=== PATIENT | male | born 1970 | race Caucasian/White ===

== ENCOUNTER 2020-08-10 01:08 | Emergency (ER) | payer OTHER ==
[~2020-08-10] VITALS: Ht 152.4 cm; Wt 68.1 kg
[2020-08-10] MEDS ORDERED: ALBU8.5H INH (01:26)
[2020-08-10] MEDS ORDERED: CARV12.5 PO (01:26)
[2020-08-10] MEDS ORDERED: PLAV1TAB2 PO (01:26)
[2020-08-10] MEDS ORDERED: ATOR40TA75 PO (01:26)
[2020-08-10] MEDS ORDERED: ADV250INH INH (01:26)
[2020-08-10] MEDS ORDERED: DEPA250T32 PO (01:26)
[2020-08-10] MEDS ORDERED: LISI10TA22 PO (01:26)
[2020-08-10] MEDS ORDERED: ASPI81CH48 PO (01:26)
[2020-08-10] MEDS ORDERED: FLUO20CA22 PO (01:26)
[2020-08-10] MEDS ORDERED: METF-877 PO (01:38)
[2020-08-10] MEDS ORDERED: INSUH10VL SC (01:38)
[2020-08-10] MEDS ORDERED: LANTINJ4 SC (01:38)
[2020-08-10 01:50] LABS: BASO # 0.1 10^3/uL (0.0-0.2); BASO % 0.7 % (0.0-1.0); EOS # 0.5 10^3/uL (0.0-0.5); EOS % 5.3 % (0.0-3.0); HEMATOCRIT 42.8 % (42.0-52.0); HEMOGLOBIN 14.2 g/dl (13.5-17.5); LYMPH % 31.3 % (24.0-44.0); MEAN CORPUSCULAR HEMOGLOBIN 29.6 pg (27.0-33.0); MEAN CORPUSCULAR HGB CONC 33.2 g/dl (32.0-36.5); MEAN CORPUSCULAR VOLUME 89.4 fl (80.0-96.0); MONO # 0.6 10^3/uL (0.0-0.8); MONO % 6.3 % (2.0-8.0); NEUTROPHILS # 5.3 10^3/uL (1.5-8.5); NEUTROPHILS % 56.1 % (36.0-66.0); PLATELET COUNT, AUTOMATED 305 10^3/uL (150-450); RED BLOOD COUNT 4.79 10^6/uL (4.30-6.10); WHITE BLOOD COUNT 9.5 10^3/uL (4.0-10.0)
[2020-08-10 02:20] LABS: ACETAMINOPHEN LEVEL < 2.0 UG/ML (10.0-30.0); ALBUMIN 3.8 GM/DL (3.2-5.2); ALT/SGPT 25 U/L (12-78); BILIRUBIN,DIRECT < 0.1 MG/DL (0.0-0.2); BILIRUBIN,TOTAL 0.2 MG/DL (0.2-1.0); BLOOD UREA NITROGEN 17 MG/DL (7-18); CALCIUM LEVEL 9.1 MG/DL (8.5-10.1); CARBON DIOXIDE LEVEL 30 MEQ/L (21-32); CHLORIDE LEVEL 101 MEQ/L (98-107); CK-MB VALUE MASS 7.1 NG/ML (<3.6); CPK CREATINE PHOSPHOKINASE 841 U/L (39-308); CREATININE FOR GFR 1.11 MG/DL (0.70-1.30); ETHYL ALCOHOL (ETHANOL) < 0.003 % (0.000-0.010); GLOMERULAR FILTRATION RATE > 60.0 (>56); GLUCOSE, FASTING 264 MG/DL (70-100); MB/CK RELATIVE INDEX 0.84 (< OR =4); POTASSIUM SERUM 3.8 MEQ/L (3.5-5.1); SALICYLATE LEVEL 3.5 MG/DL (5.0-30.0); SODIUM LEVEL 138 MEQ/L (136-145); THYROID STIMULATING HORMONE 0.993 uIU/ML (0.358-3.740); TOTAL PROTEIN 7.4 GM/DL (6.4-8.2); TROPONIN I 0.32 NG/ML (< 0.10)
[2020-08-10] MEDS ORDERED: ASPIRIN 81 MG CHEW TABLET PO ONE (02:30)
[2020-08-10] MEDS: NITROGLYCERIN 0.4 MG SUBL TABLET SL PRN ×2 (02:58→03:21)
[2020-08-10 03:12] LABS: AMPHETAMINES LEVEL URINE NEGATIVE (NEGATIVE); BARBITURATES URINE NEGATIVE (NEGATIVE); BENZODIAZEPINES URINE NEGATIVE (NEGATIVE); CANNABINOIDS URINE POSITIVE (NEGATIVE); COCAINE METABOLITE URINE NEGATIVE (NEGATIVE); METHADONE URINE NEGATIVE (NEGATIVE); OPIATES URINE NEGATIVE (NEGATIVE); PHENCYCLIDINE URINE NEGATIVE (NEGATIVE)
[2020-08-10 03:21] VITALS: BP 101/57
--- NOTE | 2020-08-10 03:25 | REPVR ---
PROCEDURE INFORMATION: Exam: XR Chest, 1 View Exam date and time: 08/10/2020 2:55 AM Age: 49 years old Clinical indication: Chest pain; Type not specified TECHNIQUE: Imaging protocol: XR of the chest Views: 1 view. COMPARISON: No relevant prior studies available. FINDINGS: Lungs: Unremarkable. No consolidation. Pleural spaces: Unremarkable. No pleural effusion. No pneumothorax. Heart/Mediastinum: Unremarkable. No cardiomegaly. Bones/joints: Unremarkable. IMPRESSION: No acute findings. Electronically signed by: Gustavo Drew On 08/10/2020 03:25:27 AM
[2020-08-10 05:08] LABS: CK-MB VALUE MASS 5.6 NG/ML (<3.6); MB/CK RELATIVE INDEX 0.89 (< OR =4); TROPONIN I 0.3 NG/ML (< 0.10)
[2020-08-10] MEDS ORDERED: ISOVUE-370 76% 100ML VIAL As Ordered ONE (05:30)
--- NOTE | 2020-08-10 06:17 | ECGEPIP ---
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
--- NOTE | 2020-08-10 06:20 | ECGEPIP ---
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
[2020-08-10 06:25] LABS: RSV AMPLIFICATION NEGATIVE (NEGATIVE)
--- NOTE | 2020-08-10 07:02 | REPVR ---
PROCEDURE INFORMATION: Exam: CT Angiography Chest With Contrast Exam date and time: 08/10/2020 6:42 AM Age: 49 years old Clinical indication: Chest pain; Additional info: Chest pain, elevated troponin TECHNIQUE: Imaging protocol: Computed tomographic angiography of the chest with contrast. 3D rendering (Not supervised by radiologist): MIP and/or 3D reconstructed images were created by the technologist. Radiation optimization: All CT scans at this facility use at least one of these dose optimization techniques: automated exposure control; mA and/or kV adjustment per patient size (includes targeted exams where dose is matched to clinical indication); or iterative reconstruction. Contrast material: ISO 370; Contrast volume: 75 ml; Contrast route: INTRAVENOUS (IV); COMPARISON: CR PORTABLE CHEST X-RAY 08/10/2020 2:52 AM FINDINGS: Pulmonary arteries: No pulmonary embolus in the opacified pulmonary arteries. Aorta: Normal caliber of the thoracic aorta. Lungs: Interstitial prominence and asymmetric left-sided airspace disease. Pleural spaces: no pleural effusion. Heart: Borderline cardiomegaly and coronary artery calcification. Lymph nodes: Subcentimeter lymph nodes. Stomach and bowel: Questionable wall thickening in the nondistended stomach. Bones/joints: Old rib fractures. Schmorl's nodes and mild degenerative change . IMPRESSION: 1. No pulmonary embolus in the opacified pulmonary arteries. 2. Additional findings as described above. Electronically signed by: Torsten Luo On 08/10/2020 07:02:18 AM
[2020-08-10] MEDS ORDERED: HEPARIN DRIP 25,000 UNITS in IV 1 EA IV SCH (07:44)
[2020-08-10] MEDS ORDERED: CLOPIDOGREL 300 MG TAB (PLAVIX) PO ONE (07:45)
[2020-08-10] MEDS ORDERED: HEPARIN SOD (PORCINE) 5000UNITS/ML 1ML VIAL/SYRINGE IV ONE (07:45)
[2020-08-10 08:38] LABS: INR 0.92; PROTHROMBIN TIME 12.5 SECONDS (12.5-14.3)
[2020-08-10 08:39] LABS: PARTIAL THROMBOPLASTIN TIME 28.9 SECONDS (24.2-38.5)
[2020-08-10 08:55] LABS: CK-MB VALUE MASS 4.4 NG/ML (<3.6); MB/CK RELATIVE INDEX 0.91 (< OR =4); TROPONIN I 0.27 NG/ML (< 0.10)
[2020-08-10 09:12] VITALS: BP 112/76
--- NOTE | 2020-08-11 07:12 | ECGEPIP ---
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
== END 2020-08-10 09:15 | disposition short-term general hospital (02) ==
LOC: M ED 01:08
DX: R45.851 Suicidal ideations (principal); R45.850 Homicidal ideations; I21.4 Non-ST elevation (NSTEMI) myocardial infarction; I25.10 Atherosclerotic heart disease of native coronary artery without angina pectoris; Z91.5 Personal history of self-harm; F17.200 Nicotine dependence, unspecified, uncomplicated; J98.4 Other disorders of lung
CPT/HCPCS: 71045; 71275; 80048; 80076; 80143; 80307; 82077; 82550; 82553; 84443; 85025; 85610; 85730; 87631; 93005; 93041; 99285; J1644; Q9967

== ENCOUNTER 2020-10-07 20:20 | Emergency (ER) | payer OTHER ==
[~2020-10-07] VITALS: Ht 152.4 cm; Wt 89.5 kg
[~2020-10-07 20:20] MED LIST: ADV250INH INH; ALBU8.5H INH; ASPI81CH48 PO; ATOR40TA75 PO; CARV12.5 PO; DEPA250T32 PO; FLUO20CA22 PO; INSUH10VL SC; LANTINJ4 SC; LISI10TA22 PO; METF-877 PO; PLAV1TAB2 PO
[2020-10-07] MEDS ORDERED: CLOPIDOGREL 75 MG TAB PO ONE (20:55)
[2020-10-07] MEDS ORDERED: ATORVASTATIN 20 MG TAB PO ONE (20:55)
[2020-10-07] MEDS ORDERED: metFORMIN (GLUCOPHAGE) 500MG TAB PO ONE (20:55)
[2020-10-07] MEDS ORDERED: ASPIRIN 81 MG CHEW TABLET PO ONE (20:55)
[2020-10-07] MEDS ORDERED: ATOR80TA59 PO ×2 (21:02→21:38)
[2020-10-07] MEDS ORDERED: METF500T13 PO ×2 (21:02→21:38)
[2020-10-07] MEDS ORDERED: ALBU8.5H INH ×2 (21:02→21:38)
[2020-10-07] MEDS ORDERED: ASPI81CH33 PO ×2 (21:02→21:38)
[2020-10-07] MEDS ORDERED: PLAV1TAB2 PO ×2 (21:02→21:38)
[2020-10-07] MEDS ORDERED: CORE12.5 PO ×2 (21:02→21:38)
[2020-10-07] MEDS ORDERED: LISI10TA22 PO ×2 (21:02→21:38)
[2020-10-07] MEDS ORDERED: PROT1TAB2 PO ×2 (21:02→21:38)
[2020-10-07 21:15] VITALS: BP 143/88
--- NOTE | 2020-10-08 10:15 | ECGEPIP ---
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
== END 2020-10-07 21:43 | disposition home or self-care (01) ==
LOC: M ED 20:20
DX: E11.65 Type 2 diabetes mellitus with hyperglycemia (principal); F17.200 Nicotine dependence, unspecified, uncomplicated; Z76.0 Encounter for issue of repeat prescription; Z88.0 Allergy status to penicillin

== ENCOUNTER 2020-10-14 08:44 | Emergency (ER) | payer OTHER ==
[~2020-10-14] VITALS: Ht 152.4 cm; Wt 79.5 kg
[~2020-10-14 08:44] MED LIST changes: +ASPI81CH33 PO; +ATOR80TA59 PO; +CORE12.5 PO; +METF500T13 PO; +PROT1TAB2 PO
--- NOTE | 2020-10-14 10:28 | REP ---
INDICATION: mass left leg--suspect lipoma. COMPARISON: None FINDINGS: In the region of the right lateral popliteal fossa and within the deep subcutanea there is an oval-shaped hypoechoic nodule which measures approximately 2.9 by 3.4 by 0.6 cm. IMPRESSION: There is a solid mixed echo nodule in the right leg as described above. The etiology of this is uncertain. Consider further evaluation with pre and post gadolinium enhanced MRI. <Electronically signed by Abhi Gordon > 10/14/20 1024
[2020-10-14 10:57] VITALS: BP 144/88
== END 2020-10-14 11:15 | disposition home or self-care (01) ==
LOC: M ED 08:44
DX: R22.41 Localized swelling, mass and lump, right lower limb (principal); Z79.51 Long term (current) use of inhaled steroids; Z79.84 Long term (current) use of oral hypoglycemic drugs; Z79.899 Other long term (current) drug therapy; Z88.0 Allergy status to penicillin; Z88.8 Allergy status to other drugs, medicaments and biological substances; Z91.030 Bee allergy status

== ENCOUNTER → 2020-10-15 | Outpatient (REF) | payer OTHER, MEDICAID | LOC: M SFHCCLAY 09:58 | PROVIDERS: ATTEND Family Medicine | DX: I11.0 Hypertensive heart disease with heart failure (principal); E11.9 Type 2 diabetes mellitus without complications; E78.5 Hyperlipidemia, unspecified; I25.10 Atherosclerotic heart disease of native coronary artery without angina pectoris; K21.9 Gastro-esophageal reflux disease without esophagitis ==

== ENCOUNTER 2021-02-03 15:04 | Emergency (ER) | payer MEDICAID, OTHER ==
[~2021-02-03] VITALS: Ht 152.4 cm; Wt 71.2 kg
[2021-02-03] MEDS ORDERED: FLUO40CA (15:35)
[2021-02-03] MEDS ORDERED: TRAZ-189 (15:35)
[2021-02-03] MEDS ORDERED: SIMV40TA20 (15:35)
[2021-02-03] MEDS ORDERED: INCR1INH (15:35)
[2021-02-03] MEDS ORDERED: DIVA500T94 (15:35)
[2021-02-03] MEDS ORDERED: ADME100I (15:35)
[2021-02-03] MEDS ORDERED: HumuLIN R (REGULAR) INSULIN (NovoLIN R) **100U/ML** PER UNIT IV ONE (15:50)
[2021-02-03 15:51] LABS: BASO # 0.1 10^3/uL (0.0-0.2); BASO % 0.9 % (0.0-1.0); EOS # 0.2 10^3/uL (0.0-0.5); EOS % 2.1 % (0.0-3.0); HEMATOCRIT 47.2 % (42.0-52.0); HEMOGLOBIN 16.3 g/dl (13.5-17.5); LYMPH # 2.4 10^3/uL (1.5-5.0); LYMPH % 28.1 % (24.0-44.0); MEAN CORPUSCULAR HEMOGLOBIN 31.2 pg (27.0-33.0); MEAN CORPUSCULAR HGB CONC 34.5 g/dl (32.0-36.5); MEAN CORPUSCULAR VOLUME 90.4 fl (80.0-96.0); MONO # 0.6 10^3/uL (0.0-0.8); NEUTROPHILS # 5.3 10^3/uL (1.5-8.5); NEUTROPHILS % 61.5 % (36.0-66.0); PLATELET COUNT, AUTOMATED 238 10^3/uL (150-450); RED BLOOD COUNT 5.22 10^6/uL (4.30-6.10); WHITE BLOOD COUNT 8.5 10^3/uL (4.0-10.0)
[2021-02-03 16:30] VITALS: BP 138/101
[2021-02-03 16:34] LABS: ALBUMIN 3.8 GM/DL (3.2-5.2); ALT/SGPT 20 U/L (12-78); BILIRUBIN,DIRECT 0.2 MG/DL (0.0-0.2); BILIRUBIN,TOTAL 0.8 MG/DL (0.2-1.0); BLOOD UREA NITROGEN 18 MG/DL (7-18); CALCIUM LEVEL 9.7 MG/DL (8.5-10.1); CARBON DIOXIDE LEVEL 28 MEQ/L (21-32); CHLORIDE LEVEL 101 MEQ/L (98-107); CREATININE FOR GFR 1.18 MG/DL (0.70-1.30); GLOMERULAR FILTRATION RATE > 60.0 (>56); GLUCOSE, FASTING 475 MG/DL (70-100); LIPASE 78 U/L (73-393); NT-PRO BNP 2840 PG/ML (<125); POTASSIUM SERUM 5.2 MEQ/L (3.5-5.1); SODIUM LEVEL 135 MEQ/L (136-145); TOTAL PROTEIN 7.3 GM/DL (6.4-8.2)
--- NOTE | 2021-02-03 16:50 | REP ---
INDICATION: CHEST PAIN. COMPARISON: 08/10/2020 also portable TECHNIQUE: Portable FINDINGS: The technique utilized in obtaining the radiograph has magnified the cardiac silhouette and accentuated the interstitial markings. The cardiomediastinal silhouette is unchanged. There is a curvilinear density in the left mid lung zone probably unchanged from the prior exam but better imaged today. Lung knowles are otherwise clear and stable. The pleural angles are sharp. The osseous structures stable and intact. IMPRESSION: There is no acute cardiopulmonary disease. <Electronically signed by Abhi Gordon > 02/03/21 [id number]
--- NOTE | 2021-02-04 06:35 | ECGEPIP ---
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
== END 2021-02-03 16:56 | disposition left against medical advice (07) ==
LOC: EDBD 15:04 → M ED 15:04
DX: R07.9 Chest pain, unspecified (principal); I11.9 Hypertensive heart disease without heart failure; I50.9 Heart failure, unspecified; J44.9 Chronic obstructive pulmonary disease, unspecified; E78.5 Hyperlipidemia, unspecified; F17.200 Nicotine dependence, unspecified, uncomplicated; Z88.0 Allergy status to penicillin; Z88.6 Allergy status to analgesic agent; Z91.030 Bee allergy status; Z95.5 Presence of coronary angioplasty implant and graft

== ENCOUNTER → 2021-08-09 | Outpatient (CLI) | payer OTHER ==
[~2021-08-09] MED LIST changes: +ADME100I; +DIVA500T94; +FLUO40CA; +INCR1INH; +SIMV40TA20; +TRAZ-189
[2021-08-09 15:19] LABS: HEMATOCRIT 46.3 % (42.0-52.0); HEMOGLOBIN 15.4 g/dl (13.5-17.5); MEAN CORPUSCULAR HEMOGLOBIN 30.2 pg (27.0-33.0); MEAN CORPUSCULAR HGB CONC 33.3 g/dl (32.0-36.5); MEAN CORPUSCULAR VOLUME 90.8 fl (80.0-96.0); PLATELET COUNT, AUTOMATED 268 10^3/uL (150-450); WHITE BLOOD COUNT 12.4 10^3/uL (4.0-10.0)
[2021-08-09 15:20] LABS: ALBUMIN 3.3 GM/DL (3.2-5.2); ALT/SGPT 14 U/L (12-78); BILIRUBIN,DIRECT < 0.1 MG/DL (0.0-0.2); BILIRUBIN,TOTAL 0.3 MG/DL (0.2-1.0); VALPROIC ACID (DEPAKOTE) 68.9 UG/ML (50.0-100.0)
== END ==
LOC: M PLALAB 12:49
PROVIDERS: ATTEND Psychiatry & Neurology Psychiatry
DX: F32.9 Major depressive disorder, single episode, unspecified (principal)

== ENCOUNTER 2022-04-15 14:07 | Emergency (ER) | payer MEDICAID, OTHER ==
[~2022-04-15 14:07] MED LIST changes: -ADME100I; +ADME100I SQ; -DIVA500T94; +DIVA500T94 PO; -INCR1INH; +INCR1INH INH; -TRAZ-189; +TRAZ-189 PO
[2022-04-15 14:46] LABS: BASO # 0.1 10^3/uL (0.0-0.2); BASO % 0.8 % (0.0-1.0); EOS # 0.2 10^3/uL (0.0-0.5); EOS % 1.9 % (0.0-3.0); HEMATOCRIT 43.5 % (42.0-52.0); HEMOGLOBIN 15.5 g/dl (13.5-17.5); LYMPH # 2.7 10^3/uL (1.5-5.0); LYMPH % 28.6 % (24.0-44.0); MEAN CORPUSCULAR HEMOGLOBIN 30.5 pg (27.0-33.0); MEAN CORPUSCULAR HGB CONC 35.6 g/dl (32.0-36.5); MEAN CORPUSCULAR VOLUME 85.6 fl (80.0-96.0); MONO # 0.5 10^3/uL (0.0-0.8); MONO % 5.1 % (2.0-8.0); NEUTROPHILS # 5.9 10^3/uL (1.5-8.5); PLATELET COUNT, AUTOMATED 277 10^3/uL (150-450); RED BLOOD COUNT 5.08 10^6/uL (4.30-6.10); WHITE BLOOD COUNT 9.4 10^3/uL (4.0-10.0)
[2022-04-15 15:09] LABS: INR 0.9; PARTIAL THROMBOPLASTIN TIME 26.8 SECONDS (24.8-34.2); PROTHROMBIN TIME 12.3 SECONDS (12.5-14.5)
[2022-04-15 15:25] LABS: MB/CK RELATIVE INDEX 1.69 (< OR =4)
[2022-04-15 15:39] LABS: ALBUMIN 3.5 GM/DL (3.2-5.2); ALT/SGPT 24 U/L (12-78); BILIRUBIN,DIRECT 0.1 MG/DL (0.0-0.2); BILIRUBIN,TOTAL 0.5 MG/DL (0.2-1.0); BLOOD UREA NITROGEN 12 MG/DL (7-18); CALCIUM LEVEL 9.3 MG/DL (8.5-10.1); CARBON DIOXIDE LEVEL 25 MEQ/L (21-32); CHLORIDE LEVEL 98 MEQ/L (98-107); CREATININE FOR GFR 1.08 MG/DL (0.70-1.30); FREE T4 1.05 NG/DL (0.76-1.46); GLOMERULAR FILTRATION RATE > 60.0 (>56); GLUCOSE, FASTING 543 MG/DL (70-100); LIPASE 148 U/L (73-393); POTASSIUM SERUM 4.3 MEQ/L (3.5-5.1); SODIUM LEVEL 132 MEQ/L (136-145); THYROID STIMULATING HORMONE 0.997 uIU/ML (0.358-3.740); TOTAL PROTEIN 7.5 GM/DL (6.4-8.2)
[2022-04-15 16:31] LABS: MB/CK RELATIVE INDEX 1.73 (< OR =4)
[2022-04-15] MEDS ORDERED: NS 1,000 ML IV ONE ×2 (16:35→17:00)
[2022-04-15 16:45] VITALS: BP 164/103
[2022-04-15] MEDS ORDERED: HumuLIN R (REGULAR) INSULIN (NovoLIN R) **100U/ML** PER UNIT IV ONE (17:00)
[2022-04-15] MEDS ORDERED: ISOVUE-370 76% 100ML VIAL As Ordered ONE (17:03)
[2022-04-15 17:23] LABS: HEMOGLOBIN A1c 11.4 %
== END 2022-04-15 17:14 | disposition left against medical advice (07) ==
LOC: M ED 14:07 → EDBD 14:07 → M ED 17:14
DX: R07.9 Chest pain, unspecified (principal); E11.9 Type 2 diabetes mellitus without complications; I10 Essential (primary) hypertension; E78.5 Hyperlipidemia, unspecified; J44.9 Chronic obstructive pulmonary disease, unspecified; F31.9 Bipolar disorder, unspecified; F17.200 Nicotine dependence, unspecified, uncomplicated; Z86.79 Personal history of other diseases of the circulatory system; Z95.5 Presence of coronary angioplasty implant and graft; Z88.0 Allergy status to penicillin; Z88.6 Allergy status to analgesic agent; Z91.030 Bee allergy status; Z79.51 Long term (current) use of inhaled steroids; Z79.82 Long term (current) use of aspirin; Z79.4 Long term (current) use of insulin; Z79.811 Long term (current) use of aromatase inhibitors; Z79.899 Other long term (current) drug therapy

== ENCOUNTER 2022-04-18 16:30 | Inpatient (IN) | payer OTHER ==
[~2022-04-18] VITALS: Ht 167.6 cm; Wt 81.8 kg
[2022-04-18 17:36] LABS: HEMATOCRIT 46.4 % (42.0-52.0); HEMOGLOBIN 16.5 g/dl (13.5-17.5); MEAN CORPUSCULAR HEMOGLOBIN 30.6 pg (27.0-33.0); MEAN CORPUSCULAR HGB CONC 35.6 g/dl (32.0-36.5); MEAN CORPUSCULAR VOLUME 85.9 fl (80.0-96.0); PLATELET COUNT, AUTOMATED 296 10^3/uL (150-450); WHITE BLOOD COUNT 10.3 10^3/uL (4.0-10.0)
[2022-04-18 17:58] LABS: AMPHETAMINES LEVEL URINE NEGATIVE (NEGATIVE); BARBITURATES URINE NEGATIVE (NEGATIVE); BENZODIAZEPINES URINE NEGATIVE (NEGATIVE); CANNABINOIDS URINE POSITIVE (NEGATIVE); COCAINE METABOLITE URINE NEGATIVE (NEGATIVE); METHADONE URINE NEGATIVE (NEGATIVE); OPIATES URINE NEGATIVE (NEGATIVE); PHENCYCLIDINE URINE NEGATIVE (NEGATIVE)
[2022-04-18 18:21] LABS: ACETAMINOPHEN LEVEL < 2.0 UG/ML (10.0-30.0); ALT/SGPT 27 U/L (12-78); BILIRUBIN,DIRECT 0.1 MG/DL (0.0-0.2); BILIRUBIN,TOTAL 0.6 MG/DL (0.2-1.0); BLOOD UREA NITROGEN 14 MG/DL (7-18); CALCIUM LEVEL 9.8 MG/DL (8.5-10.1); CARBON DIOXIDE LEVEL 26 MEQ/L (21-32); CHLORIDE LEVEL 95 MEQ/L (98-107); CREATININE FOR GFR 1.17 MG/DL (0.70-1.30); ETHYL ALCOHOL (ETHANOL) < 0.003 % (0.000-0.010); GLOMERULAR FILTRATION RATE > 60.0 (>56); GLUCOSE, FASTING 564 MG/DL (70-100); SALICYLATE LEVEL 2.5 MG/DL (5.0-30.0); SODIUM LEVEL 131 MEQ/L (136-145)
[2022-04-18] MEDS ORDERED: NICOTINE 21MG/24HR 1 EA TRANSDERMAL TD ONE (20:35)
[2022-04-18] MEDS: INSULIN LISPRO (NovoLOG) PER UNIT SC SCH (20:56)
[2022-04-18] MEDS: LEVEMIR (INSULIN DETEMIR) 1 UNITS/0.01ML SC SCH (20:57)
[2022-04-19] MEDS: INSULIN LISPRO (NovoLOG) PER UNIT SC SCH ×3 (08:42→17:44)
[2022-04-19] MEDS ORDERED: ISOS1TAB35 PO (08:58)
[2022-04-19] MEDS ORDERED: LISI10TA22 PO (08:58)
[2022-04-19] MEDS ORDERED: COMBAER6 INH (08:58)
[2022-04-19] MEDS ORDERED: CLOP75TA2 PO (08:58)
[2022-04-19] MEDS ORDERED: METF-839 PO (08:58)
[2022-04-19] MEDS ORDERED: BASA100I SC (08:58)
[2022-04-19] MEDS ORDERED: VENTAER INH (08:58)
[2022-04-19] MEDS ORDERED: ADV250INH INH (08:58)
[2022-04-19] MEDS ORDERED: ASPI-226 PO (08:58)
[2022-04-19] MEDS ORDERED: ATOR80TA59 PO (08:58)
[2022-04-19] MEDS ORDERED: NITR4TASL SL (09:01)
[2022-04-19] MEDS ORDERED: ZOLO100T PO (09:01)
[2022-04-19] MEDS ORDERED: PANT-23 PO (09:18)
[2022-04-19] MEDS ORDERED: CARV12.5 PO (09:18)
[2022-04-19] MEDS ORDERED: HOME MED LIST COMPLETE! XX SCH (09:20)
[2022-04-19] MEDS ORDERED: ISOSORBIDE MON. (IMDUR) 30MG XR TAB PO SCH (21:00)
[2022-04-19] MEDS ORDERED: ISOSORBIDE MONONITRATE 10MG TABLET PO SCH (21:00)
[2022-04-19] MEDS: LEVEMIR (INSULIN DETEMIR) 1 UNITS/0.01ML SC SCH (22:21)
[2022-04-19] MEDS: DIVALPROEX 500 MG TAB PO SCH (22:21)
[2022-04-20] MEDS: INSULIN LISPRO (NovoLOG) PER UNIT SC SCH ×5 (00:02→22:01)
[2022-04-20] MEDS ORDERED: NICOTINE 21MG/24HR 1 EA TRANSDERMAL TD ONE (07:25)
[2022-04-20] MEDS ORDERED: ASPIRIN 81 MG CHEW TABLET PO SCH (09:00)
[2022-04-20] MEDS ORDERED: PANTOPRAZOLE 40MG TAB (PROTONIX) PO SCH (09:00)
[2022-04-20] MEDS ORDERED: ATORVASTATIN 20 MG TAB PO SCH (09:00)
[2022-04-20] MEDS ORDERED: CLOPIDOGREL 75 MG TAB PO SCH (09:00)
[2022-04-20] MEDS ORDERED: metFORMIN (GLUCOPHAGE) 1000MG TABLET PO SCH (09:00)
[2022-04-20] MEDS: DIVALPROEX 500 MG TAB PO SCH ×2 (09:15→21:59)
[2022-04-20] MEDS ORDERED: ADVAIR HFA 115/21MCG INHALER INH SCH (13:44)
[2022-04-20] MEDS ORDERED: MOM 30ML SUSPENSION UDC PO PRN (13:45)
[2022-04-20] MEDS ORDERED: MAALOX 30 ML SUSP *UDC PO PRN (13:45)
[2022-04-20] MEDS ORDERED: ACETAMINOPHEN TAB 650MG DOSE (2X325MG) PO PRN (13:45)
[2022-04-20] MEDS ORDERED: traZODone 50 MG TAB PO PRN (13:45)
[2022-04-20] MEDS ORDERED: GLUCAGON INJ 1MG VIAL SC PRN (14:20)
[2022-04-20] MEDS ORDERED: GLUCOSE 4GM CHEW TABLET PO PRN (14:20)
[2022-04-20 15:50] VITALS: BP 103/59
[2022-04-20] MEDS: SERTRALINE 100 MG TAB PO SCH (17:30)
[2022-04-20] MEDS: ASPIRIN 81MG ENTERIC TABLET PO SCH (17:30)
[2022-04-20] MEDS ORDERED: LEVEMIR (INSULIN DETEMIR) 1 UNITS/0.01ML SC SCH (21:00)
[2022-04-20] MEDS ORDERED: SERTRALINE 100 MG TAB PO SCH (21:00)
[2022-04-20] MEDS: CARVedilol 12.5 MG TAB PO SCH (21:00)
[2022-04-20] MEDS: ISOSORBIDE MON. (IMDUR) 30MG XR TAB PO SCH (21:00)
[2022-04-20] MEDS: metFORMIN (GLUCOPHAGE) 500MG TAB PO SCH (21:56)
[2022-04-20] MEDS: ADVAIR HFA 115/21MCG INHALER INH SCH (21:56)
[2022-04-21 06:29] VITALS: BP 130/61
[2022-04-21] MEDS: INSULIN LISPRO (NovoLOG) PER UNIT SC SCH ×5 (06:30→20:24)
[2022-04-21] MEDS: metFORMIN (GLUCOPHAGE) 500MG TAB PO SCH ×2 (08:10→20:22)
[2022-04-21] MEDS: CARVedilol 12.5 MG TAB PO SCH ×2 (08:11→20:23)
[2022-04-21] MEDS: PANTOPRAZOLE 40MG TAB (PROTONIX) PO SCH (08:11)
[2022-04-21] MEDS: ATORVASTATIN 20 MG TAB PO SCH (08:11)
[2022-04-21] MEDS: ASPIRIN 81MG ENTERIC TABLET PO SCH (08:11)
[2022-04-21] MEDS: CLOPIDOGREL 75 MG TAB PO SCH (08:11)
[2022-04-21] MEDS: ADVAIR HFA 115/21MCG INHALER INH SCH ×2 (08:12→20:22)
[2022-04-21] MEDS: DIVALPROEX 500 MG TAB PO SCH ×2 (08:12→20:22)
[2022-04-21] MEDS: SERTRALINE 100 MG TAB PO SCH (09:21)
[2022-04-21] MEDS ORDERED: NITROGLYCERIN 0.4 MG SUBL TABLET SL PRN (14:40)
[2022-04-21] MEDS ORDERED: ALBUTEROL 90 MCG/ACT 8GM HFA INHALER INH PRN (14:40)
[2022-04-21] MEDS ORDERED: COMBIVENT RESPIMAT 100-20MCG INHALER 4GM INH PRN (14:40)
[2022-04-21] MEDS ORDERED: INSULIN LISPRO (NovoLOG) PER UNIT SC SCH (17:30)
[2022-04-21] MEDS: ISOSORBIDE MON. (IMDUR) 30MG XR TAB PO SCH (20:22)
[2022-04-21] MEDS ORDERED: LEVEMIR (INSULIN DETEMIR) 1 UNITS/0.01ML SC SCH ×2 (21:00)
[2022-04-22 06:21] VITALS: BP 112/55
[2022-04-22] MEDS: INSULIN LISPRO (NovoLOG) PER UNIT SC SCH ×2 (07:06)
[2022-04-22 08:49] VITALS: BP 100/52
[2022-04-22] MEDS: ADVAIR HFA 115/21MCG INHALER INH SCH (08:49)
[2022-04-22] MEDS: CARVedilol 12.5 MG TAB PO SCH (08:49)
[2022-04-22] MEDS: ATORVASTATIN 20 MG TAB PO SCH (08:50)
[2022-04-22] MEDS: PANTOPRAZOLE 40MG TAB (PROTONIX) PO SCH (08:50)
[2022-04-22] MEDS: ASPIRIN 81MG ENTERIC TABLET PO SCH (08:50)
[2022-04-22] MEDS: SERTRALINE 100 MG TAB PO SCH (08:50)
[2022-04-22] MEDS: CLOPIDOGREL 75 MG TAB PO SCH (08:51)
[2022-04-22] MEDS: metFORMIN (GLUCOPHAGE) 500MG TAB PO SCH (08:51)
[2022-04-22] MEDS: DIVALPROEX 500 MG TAB PO SCH (08:51)
[2022-04-22] MEDS ORDERED: TRAZ-252 PO (10:53)
[2022-04-22] MEDS ORDERED: ZOLO100T PO ×2 (10:53→12:12)
[2022-04-22] MEDS ORDERED: DEPA1TAB3 PO ×2 (10:53→12:11)
[2022-04-22] MEDS ORDERED: TRAZ1TAB10 PO (12:13)
== END 2022-04-22 11:52 | disposition home or self-care (01) | DRG 753 ==
LOC: M ED 16:30 → M ED INP 04-20 13:44 → M PSY 04-20 15:59
PROVIDERS: ADMIT Psychiatry & Neurology Psychiatry; ATTEND Psychiatry & Neurology Psychiatry
DX: F31.81 Bipolar II disorder (principal); E11.9 Type 2 diabetes mellitus without complications; R45.851 Suicidal ideations; Z91.14 Patient's other noncompliance with medication regimen; F12.90 Cannabis use, unspecified, uncomplicated; Z79.4 Long term (current) use of insulin; Z88.0 Allergy status to penicillin; Z88.8 Allergy status to other drugs, medicaments and biological substances; Z79.82 Long term (current) use of aspirin; Z79.899 Other long term (current) drug therapy; Z91.030 Bee allergy status; J44.9 Chronic obstructive pulmonary disease, unspecified; E78.5 Hyperlipidemia, unspecified; F43.10 Post-traumatic stress disorder, unspecified; K21.9 Gastro-esophageal reflux disease without esophagitis; Z95.2 Presence of prosthetic heart valve; Z87.891 Personal history of nicotine dependence

== ENCOUNTER 2022-04-26 22:10 | Emergency (ER) | payer OTHER ==
[~2022-04-26] VITALS: Ht 165.1 cm; Wt 78.2 kg
[2022-04-26 22:10] VITALS: BP 156/95
[~2022-04-26 22:10] MED LIST changes: +ASPI-226 PO; +BASA100I SC; +CLOP75TA2 PO; +CLOP75TA99 PO; +COMBAER6 INH; +DEPA1TAB3 PO; +ISOS1TAB35 PO; +METF-839 PO; +NITR4TASL SL; +PANT-23 PO; -PLAV1TAB2 PO; +TRAZ-252 PO; +TRAZ1TAB10 PO; +VENTAER INH; +ZOLO100T PO
== END 2022-04-26 22:50 | disposition left against medical advice (07) ==
LOC: M ED 22:10
DX: Z53.21 Procedure and treatment not carried out due to patient leaving prior to being seen by health care provider (principal)

== ENCOUNTER 2022-04-28 18:50 | Emergency (ER) | payer OTHER ==
[~2022-04-28] VITALS: Ht 167.6 cm; Wt 77.4 kg
[2022-04-28 23:16] VITALS: BP 141/90
== END 2022-04-29 00:19 | disposition home or self-care (01) ==
LOC: M ED 18:50
DX: S69.91XA Unspecified injury of right wrist, hand and finger(s), initial encounter (principal); W10.1XXA Fall (on)(from) sidewalk curb, initial encounter; J44.9 Chronic obstructive pulmonary disease, unspecified; J45.909 Unspecified asthma, uncomplicated; F31.9 Bipolar disorder, unspecified; E11.9 Type 2 diabetes mellitus without complications; E78.5 Hyperlipidemia, unspecified; I10 Essential (primary) hypertension; F17.200 Nicotine dependence, unspecified, uncomplicated; Y92.9 Unspecified place or not applicable; Y93.9 Activity, unspecified; Y99.9 Unspecified external cause status; Z86.73 Personal history of transient ischemic attack (TIA), and cerebral infarction without residual deficits; Z91.030 Bee allergy status; Z88.5 Allergy status to narcotic agent; Z79.51 Long term (current) use of inhaled steroids; Z79.4 Long term (current) use of insulin; Z79.811 Long term (current) use of aromatase inhibitors; Z79.899 Other long term (current) drug therapy

== ENCOUNTER 2022-05-08 14:31 | Emergency (ER) | payer MEDICAID, OTHER ==
[~2022-05-08] VITALS: Ht 170.2 cm; Wt 78.6 kg
[2022-05-08] MEDS ORDERED: IBUP-1022 PO (15:45)
[2022-05-08 15:53] VITALS: BP 141/92
== END 2022-05-08 15:58 | disposition home or self-care (01) ==
LOC: M ED 14:31
DX: S63.501A Unspecified sprain of right wrist, initial encounter (principal); W10.8XXA Fall (on) (from) other stairs and steps, initial encounter; J44.9 Chronic obstructive pulmonary disease, unspecified; F31.9 Bipolar disorder, unspecified; I10 Essential (primary) hypertension; J45.909 Unspecified asthma, uncomplicated; F17.200 Nicotine dependence, unspecified, uncomplicated; Z88.0 Allergy status to penicillin; Z91.030 Bee allergy status; Z88.5 Allergy status to narcotic agent; Y92.009 Unspecified place in unspecified non-institutional (private) residence as the place of occurrence of the external cause; Y93.9 Activity, unspecified; Y99.9 Unspecified external cause status; Z79.51 Long term (current) use of inhaled steroids; Z79.811 Long term (current) use of aromatase inhibitors; Z79.4 Long term (current) use of insulin; Z79.899 Other long term (current) drug therapy

== ENCOUNTER 2022-05-26 14:00 | Observation (INO) | payer MEDICAID, OTHER ==
[~2022-05-26] VITALS: Ht 167.6 cm; Wt 74.0 kg
[~2022-05-26 14:00] MED LIST changes: +IBUP-1022 PO
[2022-05-26] MEDS ORDERED: LEXA5TAB13 PO (14:30)
[2022-05-26 15:23] LABS: BASO # 0.1 10^3/uL (0.0-0.2); BASO % 0.4 % (0.0-1.0); EOS % 0.1 % (0.0-3.0); HEMATOCRIT 45.7 % (42.0-52.0); LYMPH # 2.1 10^3/uL (1.5-5.0); LYMPH % 15.5 % (24.0-44.0); MEAN CORPUSCULAR HEMOGLOBIN 30.5 pg (27.0-33.0); MEAN CORPUSCULAR VOLUME 87.2 fl (80.0-96.0); MONO # 0.8 10^3/uL (0.0-0.8); MONO % 5.7 % (2.0-8.0); NEUTROPHILS # 10.7 10^3/uL (1.5-8.5); NEUTROPHILS % 77.9 % (36.0-66.0); PLATELET COUNT, AUTOMATED 269 10^3/uL (150-450); RED BLOOD COUNT 5.24 10^6/uL (4.30-6.10); WHITE BLOOD COUNT 13.8 10^3/uL (4.0-10.0)
[2022-05-26 16:08] LABS: CK-MB VALUE MASS 3.7 NG/ML (<3.6)
[2022-05-26 16:12] LABS: ETHYL ALCOHOL (ETHANOL) 0.003 % (0.000-0.010); THYROID STIMULATING HORMONE 0.377 uIU/ML (0.55-4.78)
[2022-05-26 16:13] LABS: VALPROIC ACID (DEPAKOTE) < 3.0 UG/ML (50.0-100.0)
[2022-05-26 16:14] LABS: ACETAMINOPHEN LEVEL < 2.0 UG/ML (10.0-20.0); BILIRUBIN,DIRECT 0.2 MG/DL (<0.4); SALICYLATE LEVEL < 3.0 MG/DL (<30)
[2022-05-26 16:15] LABS: CPK CREATINE PHOSPHOKINASE 247 U/L (46-171); MB/CK RELATIVE INDEX 1.49 (< OR =4)
[2022-05-26 16:20] LABS: AMPHETAMINES LEVEL URINE NEGATIVE (NEGATIVE); BARBITURATES URINE NEGATIVE (NEGATIVE); BENZODIAZEPINES URINE NEGATIVE (NEGATIVE); CANNABINOIDS URINE NEGATIVE (NEGATIVE); COCAINE METABOLITE URINE NEGATIVE (NEGATIVE); METHADONE URINE NEGATIVE (NEGATIVE); OPIATES URINE NEGATIVE (NEGATIVE); PHENCYCLIDINE URINE NEGATIVE (NEGATIVE)
[2022-05-26 16:23] LABS: ALBUMIN 3.9 G/DL (3.2-5.2); ALKALINE PHOSPHATASE 127 U/L (46-116); ALT/SGPT 18 U/L (7.0-40); AST/SGOT 15 U/L (<34); BILIRUBIN,TOTAL 0.6 MG/DL (0.3-1.2); BLOOD UREA NITROGEN 16 MG/DL (9-23); CALCIUM LEVEL 9.3 MG/DL (8.5-10.1); CARBON DIOXIDE LEVEL 29 MMOL/L (20-31); CHLORIDE LEVEL 88 MMOL/L (98-107); CREATININE FOR GFR 0.79 MG/DL (0.70-1.30); GLOMERULAR FILTRATION RATE > 60.0 (>56); GLUCOSE, FASTING 682 MG/DL (60-100); POTASSIUM SERUM 4.5 MMOL/L (3.5-5.1); SODIUM LEVEL 126 MMOL/L (136-145); TOTAL PROTEIN 7.3 G/DL (5.7-8.2)
[2022-05-26] MEDS ORDERED: HumuLIN R (REGULAR) INSULIN (NovoLIN R) **100U/ML** PER UNIT IV ONE (16:50)
[2022-05-26 16:57] LABS: OSMOLALITY SERUM 302 MOSM/KG (275-295)
[2022-05-26 18:02] LABS: RSV AMPLIFICATION NEGATIVE (NEGATIVE)
[2022-05-26] MEDS ORDERED: DEXTROSE 50% 50 ML SYRINGE IV PRN (19:40)
[2022-05-26] MEDS ORDERED: NICOTINE POLACRILEX 2 MG GUM PO PRN (19:40)
[2022-05-26] MEDS ORDERED: ACETAMINOPHEN TAB 650MG DOSE (2X325MG) PO PRN (19:40)
[2022-05-26] MEDS ORDERED: NS 1,000 ML IV ONE (19:40)
[2022-05-26] MEDS ORDERED: GLUCAGON INJ 1MG VIAL SC PRN (19:40)
[2022-05-26] MEDS ORDERED: GLUCOSE 4GM CHEW TABLET PO PRN (19:40)
[2022-05-26 20:03] LABS: HEMOGLOBIN A1c 13.4 % (4.0-6.0)
[2022-05-26] MEDS ORDERED: LORazepam 2 MG/ML VIAL IV PRN (20:20)
[2022-05-26 20:56] LABS: FREE T4 2.06 NG/DL (0.89-1.76)
[2022-05-26] MEDS: INSULIN LISPRO (NovoLOG) PER UNIT SC SCH (20:58)
[2022-05-26 22:37] LABS: CK-MB VALUE MASS 3.3 NG/ML (<3.6); MAGNESIUM LEVEL 1.9 MG/DL (1.8-2.4)
[2022-05-26 22:38] LABS: BLOOD UREA NITROGEN 17 MG/DL (9-23); CALCIUM LEVEL 9.1 MG/DL (8.5-10.1); CARBON DIOXIDE LEVEL 29 MMOL/L (20-31); CHLORIDE LEVEL 96 MMOL/L (98-107); CPK CREATINE PHOSPHOKINASE 225 U/L (46-171); CREATININE FOR GFR 0.83 MG/DL (0.70-1.30); GLOMERULAR FILTRATION RATE > 60.0 (>56); GLUCOSE, FASTING 323 MG/DL (60-100); MB/CK RELATIVE INDEX 1.46 (< OR =4); SODIUM LEVEL 135 MMOL/L (136-145)
[2022-05-27] MEDS: CARVedilol 12.5 MG TAB PO SCH ×3 (00:51→21:00)
[2022-05-27] MEDS ORDERED: NITROGLYCERIN 0.4MG SUBL TABLET SL PRN (02:55)
[2022-05-27] MEDS ORDERED: traZODone 50 MG TAB PO PRN (02:55)
[2022-05-27] MEDS: ISOSORBIDE MON. (IMDUR) 30MG XR TAB PO SCH ×2 (03:39→21:52)
[2022-05-27 06:55] LABS: HEMATOCRIT 44.1 % (42.0-52.0); HEMOGLOBIN 15.3 g/dl (13.5-17.5); MEAN CORPUSCULAR HEMOGLOBIN 30.8 pg (27.0-33.0); MEAN CORPUSCULAR HGB CONC 34.7 g/dl (32.0-36.5); MEAN CORPUSCULAR VOLUME 88.9 fl (80.0-96.0); PLATELET COUNT, AUTOMATED 245 10^3/uL (150-450); RED BLOOD COUNT 4.96 10^6/uL (4.30-6.10); WHITE BLOOD COUNT 13.6 10^3/uL (4.0-10.0)
[2022-05-27 07:20] LABS: MAGNESIUM LEVEL 1.8 MG/DL (1.8-2.4)
[2022-05-27 07:30] LABS: ALBUMIN 3.3 G/DL (3.2-5.2); ALKALINE PHOSPHATASE 94 U/L (46-116); ALT/SGPT 14 U/L (7.0-40); AST/SGOT 16 U/L (<34); BILIRUBIN,TOTAL 0.7 MG/DL (0.3-1.2); BLOOD UREA NITROGEN 16 MG/DL (9-23); CALCIUM LEVEL 8.5 MG/DL (8.5-10.1); CARBON DIOXIDE LEVEL 28 MMOL/L (20-31); CHLORIDE LEVEL 95 MMOL/L (98-107); CREATININE FOR GFR 0.77 MG/DL (0.70-1.30); GLOMERULAR FILTRATION RATE > 60.0 (>56); GLUCOSE, FASTING 415 MG/DL (60-100); POTASSIUM SERUM 4.3 MMOL/L (3.5-5.1); SODIUM LEVEL 132 MMOL/L (136-145); TOTAL PROTEIN 6.2 G/DL (5.7-8.2)
[2022-05-27] MEDS: INSULIN LISPRO (NovoLOG) PER UNIT SC SCH ×4 (07:30→21:41)
[2022-05-27 08:03] VITALS: BP 121/73
[2022-05-27] MEDS: ADVAIR HFA 115/21MCG INHALER INH SCH ×2 (08:55→20:24)
[2022-05-27] MEDS ORDERED: INSULIN LISPRO (NovoLOG) PER UNIT SC ONE ×2 (08:55→14:50)
[2022-05-27] MEDS ORDERED: NS 1,000 ML IV ONE (09:05)
[2022-05-27] MEDS: SERTRALINE 100 MG TAB PO SCH (09:20)
[2022-05-27] MEDS: ENOXAPARIN 40MG/0.4ML SYRINGE (J1650 PER 10MG) SC SCH (09:21)
[2022-05-27] MEDS: PANTOPRAZOLE 40MG TAB (PROTONIX) PO SCH (09:21)
[2022-05-27] MEDS: ASPIRIN 81MG CHEW TABLET PO SCH (09:21)
[2022-05-27] MEDS: ESCITALOPRAM OXALATE 5MG TABLET (LEXAPRO) PO SCH (09:21)
[2022-05-27] MEDS: CLOPIDOGREL 75 MG TAB PO SCH (09:21)
[2022-05-27] MEDS: DIVALPROEX 500 MG TAB PO SCH ×2 (09:21→21:38)
[2022-05-27] MEDS ORDERED: IBUP-1022 PO (10:31)
[2022-05-27] MEDS ORDERED: DIVA500T94 PO (10:31)
[2022-05-27] MEDS ORDERED: ZOLO100T PO (10:31)
[2022-05-27] MEDS ORDERED: TRAZ-252 PO (10:31)
[2022-05-27] MEDS ORDERED: LISI2.5T9 PO (10:31)
[2022-05-27] MEDS: NS 1,000 ML IV SCH ×2 (11:00→20:03)
[2022-05-27] MEDS ORDERED: SYMB16INH INH (11:30)
[2022-05-27] MEDS ORDERED: B-1100TA2 PO (11:30)
[2022-05-27] MEDS ORDERED: MED REC COMMENT (11:32)
[2022-05-27] MEDS ORDERED: HOME MED LIST COMPLETE! XX SCH (11:35)
[2022-05-27 15:10] VITALS: BP 102/64
[2022-05-27] MEDS ORDERED: ATORVASTATIN 20 MG TAB PO SCH (21:00)
[2022-05-27] MEDS ORDERED: LEVEMIR (INSULIN DETEMIR) 1 UNITS/0.01ML SC SCH (21:00)
[2022-05-27 21:06] VITALS: BP 105/65
[2022-05-28 06:41] VITALS: BP 127/78
[2022-05-28 06:55] LABS: HEMOGLOBIN 13.4 g/dl (13.5-17.5); MEAN CORPUSCULAR HEMOGLOBIN 30.6 pg (27.0-33.0); MEAN CORPUSCULAR HGB CONC 33.5 g/dl (32.0-36.5); MEAN CORPUSCULAR VOLUME 91.3 fl (80.0-96.0); PLATELET COUNT, AUTOMATED 242 10^3/uL (150-450); RED BLOOD COUNT 4.38 10^6/uL (4.30-6.10); WHITE BLOOD COUNT 10.2 10^3/uL (4.0-10.0)
[2022-05-28 07:10] LABS: MAGNESIUM LEVEL 1.8 MG/DL (1.8-2.4)
[2022-05-28 07:11] LABS: BLOOD UREA NITROGEN 17 MG/DL (9-23); CALCIUM LEVEL 8.2 MG/DL (8.5-10.1); CARBON DIOXIDE LEVEL 26 MMOL/L (20-31); CHLORIDE LEVEL 108 MMOL/L (98-107); CREATININE FOR GFR 0.68 MG/DL (0.70-1.30); GLOMERULAR FILTRATION RATE > 60.0 (>56); GLUCOSE, FASTING 99 MG/DL (60-100); PHOSPHORUS LEVEL 2.6 MG/DL (2.5-4.9); POTASSIUM SERUM 3.6 MMOL/L (3.5-5.1); SODIUM LEVEL 141 MMOL/L (136-145)
[2022-05-28] MEDS: ADVAIR HFA 115/21MCG INHALER INH SCH (08:00)
[2022-05-28] MEDS: ENOXAPARIN 40MG/0.4ML SYRINGE (J1650 PER 10MG) SC SCH (09:00)
[2022-05-28] MEDS: CLOPIDOGREL 75 MG TAB PO SCH (09:33)
[2022-05-28] MEDS: INSULIN LISPRO (NovoLOG) PER UNIT SC SCH (09:33)
[2022-05-28] MEDS: CARVedilol 12.5 MG TAB PO SCH (09:34)
[2022-05-28] MEDS: ASPIRIN 81MG CHEW TABLET PO SCH (09:35)
[2022-05-28] MEDS: DIVALPROEX 500 MG TAB PO SCH (09:35)
[2022-05-28] MEDS: ESCITALOPRAM OXALATE 5MG TABLET (LEXAPRO) PO SCH (09:35)
[2022-05-28] MEDS: PANTOPRAZOLE 40MG TAB (PROTONIX) PO SCH (09:35)
[2022-05-28 09:36] VITALS: BP 125/78
[2022-05-28] MEDS: SERTRALINE 100 MG TAB PO SCH (09:36)
[2022-05-28] MEDS ORDERED: ATOR1TAB21 PO (21:53)
[2022-05-28] MEDS ORDERED: MED REC COMMENT (21:55)
== END 2022-05-28 12:26 | disposition home or self-care (01) ==
LOC: M ED 14:00 → M ED INP 19:38 → ENRESERV 05-27 13:51 → M MS5PR 05-27 15:11
PROVIDERS: ADMIT Family Medicine; ATTEND Family Medicine
DX: R41.3 Other amnesia (principal); R65.10 Systemic inflammatory response syndrome (SIRS) of non-infectious origin without acute organ dysfunction; I25.10 Atherosclerotic heart disease of native coronary artery without angina pectoris; F32.A Depression, unspecified; E11.9 Type 2 diabetes mellitus without complications; I10 Essential (primary) hypertension; F43.10 Post-traumatic stress disorder, unspecified; J44.9 Chronic obstructive pulmonary disease, unspecified; F12.10 Cannabis abuse, uncomplicated; E78.5 Hyperlipidemia, unspecified; K21.9 Gastro-esophageal reflux disease without esophagitis; Z79.4 Long term (current) use of insulin; Z79.82 Long term (current) use of aspirin; Z79.84 Long term (current) use of oral hypoglycemic drugs; Z79.899 Other long term (current) drug therapy; Z88.0 Allergy status to penicillin; Z91.030 Bee allergy status; Z88.8 Allergy status to other drugs, medicaments and biological substances
CPT/HCPCS: 36415; 70450; 70551; 71045; 80048; 80053; 80076; 80143; 80164; 80307; 81002; 82077; 82140; 82550; 82553; 82947; 83036; 83605; 83735; 83930; 84100; 84439; 84443; 85025; 85027; 85652; 86140; 87040; 87631; 93005; 93041; 94640; 94760; 96361; 96374; 96375; 96376; 99285; J1650; J1815

== ENCOUNTER 2022-05-28 19:29 | Inpatient (IN) | payer OTHER ==
[~2022-05-28] VITALS: Ht 170.2 cm; Wt 74.2 kg
[~2022-05-28 19:29] MED LIST changes: +B-1100TA2 PO; +LEXA5TAB13 PO; +LISI2.5T9 PO; +MED REC COMMENT; +SYMB16INH INH
[2022-05-28 20:15] LABS: APPEARANCE, URINE MANUAL CLEAR (CLEAR); BILIRUBIN, URINE MANUAL NEGATIVE (NEGATIVE); BLOOD URINE MANUAL NEGATIVE (NEGATIVE); COLOR, URINE MANUAL YELLOW (YELLOW); GLUCOSE, URINE (UA) MANUAL 4+(1000 MG/DL) mg/dL (NEGATIVE); KETONE, URINE MANUAL 1+ mg/dL (NEGATIVE); LEUKOCYTE ESTERASE, URINE MAN NEGATIVE (NEGATIVE); NITRITE, URINE MANUAL NEGATIVE (NEGATIVE); PROTEIN, URINE MANUAL NEGATIVE (NEGATIVE); SPECIFIC GRAVITY,URINE MANUAL 1.015 (1.002-1.035); UROBILINOGEN, URINE MANUAL NORMAL (NORMAL)
[2022-05-28 20:24] LABS: VENOUS BASE EXCESS 0.2 (-2.0-2.0); VENOUS HCO3 24.3 MEQ/L (23.0-27.0); VENOUS O2 SATURATION 87.8 % (60.0-80.0); VENOUS PARTIAL PRESSURE CO2 37.9 mmHg (38.0-50.0); VENOUS PARTIAL PRESSURE O2 46.9 mmHg (30.0-50.0); VENOUS PH 7.424 UNITS (7.330-7.430); VENOUS STANDARD HCO3 24.4 MEQ/L; VENOUS TOTAL CO2 25.4 MEQ/L (24.0-28.0)
[2022-05-28 20:26] LABS: BASO # 0.1 10^3/uL (0.0-0.2); BASO % 0.7 % (0.0-1.0); EOS # 0.1 10^3/uL (0.0-0.5); EOS % 0.8 % (0.0-3.0); HEMATOCRIT 46.6 % (42.0-52.0); LYMPH % 18.8 % (24.0-44.0); MEAN CORPUSCULAR HEMOGLOBIN 30.6 pg (27.0-33.0); MEAN CORPUSCULAR HGB CONC 33.9 g/dl (32.0-36.5); MEAN CORPUSCULAR VOLUME 90.1 fl (80.0-96.0); MONO # 0.4 10^3/uL (0.0-0.8); MONO % 3.9 % (2.0-8.0); NEUTROPHILS % 75.1 % (36.0-66.0); PLATELET COUNT, AUTOMATED 260 10^3/uL (150-450); RED BLOOD COUNT 5.17 10^6/uL (4.30-6.10); WHITE BLOOD COUNT 10.6 10^3/uL (4.0-10.0)
[2022-05-28 20:30] LABS: HEMOGLOBIN 15.8 g/dl (13.5-17.5)
[2022-05-28 20:51] LABS: ETHYL ALCOHOL (ETHANOL) 0.003 % (0.000-0.010)
[2022-05-28 20:57] LABS: ALBUMIN 3.2 G/DL (3.2-5.2); ALKALINE PHOSPHATASE 90 U/L (46-116); ALT/SGPT 14 U/L (7.0-40); AST/SGOT 14 U/L (<34); BILIRUBIN,TOTAL 0.3 MG/DL (0.3-1.2); BLOOD UREA NITROGEN 14 MG/DL (9-23); CALCIUM LEVEL 8.7 MG/DL (8.5-10.1); CARBON DIOXIDE LEVEL 24 MMOL/L (20-31); CHLORIDE LEVEL 104 MMOL/L (98-107); CREATININE FOR GFR 0.72 MG/DL (0.70-1.30); GLOMERULAR FILTRATION RATE > 60.0 (>56); GLUCOSE, FASTING 302 MG/DL (60-100); SODIUM LEVEL 138 MMOL/L (136-145); TOTAL PROTEIN 6.2 G/DL (5.7-8.2)
[2022-05-28] MEDS ORDERED: LISINOPRIL *2.5 MG* TAB PO SCH (21:00)
[2022-05-28] MEDS ORDERED: NS 1,000 ML IV ONE (21:05)
[2022-05-28] MEDS ORDERED: INSULIN IV RATE CHANGE DOCUMENTATION ML/HR XX SCH (21:35)
[2022-05-28] MEDS ORDERED: INSULIN REGULAR IN 0.9 % NACL 100 UNIT in IV 1 EA IV SCH ×2 (21:35)
[2022-05-28] MEDS ORDERED: HumuLIN R (REGULAR) INSULIN (NovoLIN R) **100U/ML** PER UNIT IV ONE (21:35)
[2022-05-28] MEDS ORDERED: ATOR1TAB21 PO (21:53)
[2022-05-28] MEDS ORDERED: MED REC COMMENT (21:55)
[2022-05-28] MEDS ORDERED: HOME MED LIST COMPLETE! XX SCH (22:00)
[2022-05-28 22:03] LABS: AMPHETAMINES LEVEL URINE NEGATIVE (NEGATIVE); BARBITURATES URINE NEGATIVE (NEGATIVE); BENZODIAZEPINES URINE NEGATIVE (NEGATIVE); CANNABINOIDS URINE NEGATIVE (NEGATIVE); COCAINE METABOLITE URINE NEGATIVE (NEGATIVE); METHADONE URINE NEGATIVE (NEGATIVE); OPIATES URINE NEGATIVE (NEGATIVE); PHENCYCLIDINE URINE NEGATIVE (NEGATIVE)
[2022-05-28 22:06] LABS: MAGNESIUM LEVEL 1.8 MG/DL (1.8-2.4)
[2022-05-28 22:07] LABS: PHOSPHORUS LEVEL 2.7 MG/DL (2.5-4.9)
[2022-05-28 22:19] LABS: OSMOLALITY SERUM 293 MOSM/KG (275-295)
[2022-05-28 22:59] LABS: RSV AMPLIFICATION NEGATIVE (NEGATIVE)
[2022-05-29] MEDS ORDERED: GLUCAGON INJ 1MG VIAL SC PRN (01:10)
[2022-05-29] MEDS ORDERED: GLUCOSE 4GM CHEW TABLET PO PRN (01:10)
[2022-05-29] MEDS ORDERED: ALBUTEROL 90 MCG/ACT 8GM HFA INHALER INH PRN (01:10)
[2022-05-29] MEDS ORDERED: COMBIVENT RESPIMAT 100-20MCG INHALER 4GM INH PRN (01:10)
[2022-05-29] MEDS ORDERED: DEXTROSE 50% 50ML SYRINGE IV PRN (01:10)
[2022-05-29 02:37] VITALS: BP 162/102
[2022-05-29 05:51] VITALS: BP 151/98
[2022-05-29] MEDS: INSULIN LISPRO (NovoLOG) PER UNIT SC SCH ×4 (06:53→20:24)
[2022-05-29] MEDS: HEPARIN SOD (PORCINE) 5000UNITS/ML 1ML VIAL/SYRINGE SC SCH ×3 (06:53→22:48)
[2022-05-29] MEDS: SYMBICORT 160/4.5MCG INHALER 6GM INH SCH ×2 (07:18→20:00)
[2022-05-29] MEDS: THIAMINE 100 MG TAB PO SCH (08:46)
[2022-05-29] MEDS: LEVEMIR (INSULIN DETEMIR) 1 UNITS/0.01ML SC SCH ×2 (08:46→20:24)
[2022-05-29] MEDS: SERTRALINE 100 MG TAB PO SCH (08:47)
[2022-05-29] MEDS: ASPIRIN 81MG ENTERIC TABLET PO SCH (08:47)
[2022-05-29] MEDS: ATORVASTATIN 20 MG TAB PO SCH (08:47)
[2022-05-29] MEDS: PANTOPRAZOLE 40MG TAB (PROTONIX) PO SCH (08:47)
[2022-05-29] MEDS: ISOSORBIDE MON. (IMDUR) 30MG XR TAB PO SCH (08:49)
[2022-05-29] MEDS: CLOPIDOGREL 75 MG TAB PO SCH (08:49)
[2022-05-29] MEDS ORDERED: DIVALPROEX 500 MG TAB PO SCH (09:00)
[2022-05-29] MEDS ORDERED: ATORVASTATIN 20 MG TAB PO SCH (09:00)
[2022-05-29 14:00] VITALS: BP 103/67
[2022-05-29 20:00] VITALS: BP 106/69
[2022-05-29] MEDS: DIVALPROEX 250MG TAB PO SCH (20:23)
[2022-05-29] MEDS: lisinopriL 5 MG TAB PO SCH (21:00)
[2022-05-30 05:59] LABS: HEMATOCRIT 41.2 % (42.0-52.0); HEMOGLOBIN 13.9 g/dl (13.5-17.5); MEAN CORPUSCULAR HEMOGLOBIN 30.8 pg (27.0-33.0); MEAN CORPUSCULAR HGB CONC 33.7 g/dl (32.0-36.5); MEAN CORPUSCULAR VOLUME 91.2 fl (80.0-96.0); PLATELET COUNT, AUTOMATED 232 10^3/uL (150-450); RED BLOOD COUNT 4.52 10^6/uL (4.30-6.10); WHITE BLOOD COUNT 8.5 10^3/uL (4.0-10.0)
[2022-05-30 06:00] VITALS: BP 138/79
[2022-05-30 06:31] LABS: MAGNESIUM LEVEL 1.8 MG/DL (1.8-2.4)
[2022-05-30 06:32] LABS: VALPROIC ACID (DEPAKOTE) 58.1 UG/ML (50.0-100.0)
[2022-05-30 06:33] LABS: BLOOD UREA NITROGEN 14 MG/DL (9-23); CALCIUM LEVEL 8.7 MG/DL (8.5-10.1); CARBON DIOXIDE LEVEL 28 MMOL/L (20-31); CHLORIDE LEVEL 104 MMOL/L (98-107); CREATININE FOR GFR 0.68 MG/DL (0.70-1.30); GLOMERULAR FILTRATION RATE > 60.0 (>56); GLUCOSE, FASTING 307 MG/DL (60-100); PHOSPHORUS LEVEL 3.2 MG/DL (2.5-4.9); SODIUM LEVEL 140 MMOL/L (136-145)
[2022-05-30] MEDS: INSULIN LISPRO (NovoLOG) PER UNIT SC SCH ×4 (06:55→20:33)
[2022-05-30] MEDS: HEPARIN SOD (PORCINE) 5000UNITS/ML 1ML VIAL/SYRINGE SC SCH ×3 (06:55→21:33)
[2022-05-30] MEDS: SYMBICORT 160/4.5MCG INHALER 6GM INH SCH ×2 (07:33→20:00)
[2022-05-30] MEDS: LEVEMIR (INSULIN DETEMIR) 1 UNITS/0.01ML SC SCH ×2 (08:21→20:34)
[2022-05-30] MEDS: ASPIRIN 81MG ENTERIC TABLET PO SCH (08:21)
[2022-05-30] MEDS: ATORVASTATIN 20 MG TAB PO SCH (08:22)
[2022-05-30] MEDS: THIAMINE 100 MG TAB PO SCH (08:22)
[2022-05-30] MEDS: CLOPIDOGREL 75 MG TAB PO SCH (08:22)
[2022-05-30] MEDS: SERTRALINE 100 MG TAB PO SCH (08:22)
[2022-05-30] MEDS: DIVALPROEX 250MG TAB PO SCH ×2 (08:22→20:34)
[2022-05-30] MEDS: ISOSORBIDE MON. (IMDUR) 30MG XR TAB PO SCH (08:23)
[2022-05-30] MEDS: PANTOPRAZOLE 40MG TAB (PROTONIX) PO SCH (08:23)
[2022-05-30 14:00] VITALS: BP 134/87
[2022-05-30 20:00] VITALS: BP 121/85
[2022-05-30] MEDS: lisinopriL 5 MG TAB PO SCH (20:34)
[2022-05-31] MEDS: HEPARIN SOD (PORCINE) 5000UNITS/ML 1ML VIAL/SYRINGE SC SCH ×3 (05:08→21:08)
[2022-05-31 05:35] VITALS: BP 125/63
[2022-05-31 06:08] LABS: HEMATOCRIT 41.6 % (42.0-52.0); MEAN CORPUSCULAR HEMOGLOBIN 30.6 pg (27.0-33.0); MEAN CORPUSCULAR HGB CONC 33.7 g/dl (32.0-36.5); PLATELET COUNT, AUTOMATED 224 10^3/uL (150-450); RED BLOOD COUNT 4.57 10^6/uL (4.30-6.10); WHITE BLOOD COUNT 8.1 10^3/uL (4.0-10.0)
[2022-05-31 06:46] LABS: MAGNESIUM LEVEL 1.7 MG/DL (1.8-2.4)
[2022-05-31 06:48] LABS: BLOOD UREA NITROGEN 14 MG/DL (9-23); CALCIUM LEVEL 8.7 MG/DL (8.5-10.1); CARBON DIOXIDE LEVEL 29 MMOL/L (20-31); CHLORIDE LEVEL 104 MMOL/L (98-107); CREATININE FOR GFR 0.63 MG/DL (0.70-1.30); GLOMERULAR FILTRATION RATE > 60.0 (>56); GLUCOSE, FASTING 183 MG/DL (60-100); PHOSPHORUS LEVEL 3.6 MG/DL (2.5-4.9); POTASSIUM SERUM 3.7 MMOL/L (3.5-5.1); SODIUM LEVEL 141 MMOL/L (136-145)
[2022-05-31] MEDS: LEVEMIR (INSULIN DETEMIR) 1 UNITS/0.01ML SC SCH ×2 (08:32→20:23)
[2022-05-31] MEDS: INSULIN LISPRO (NovoLOG) PER UNIT SC SCH ×4 (08:33→20:19)
[2022-05-31] MEDS: DIVALPROEX 250MG TAB PO SCH ×2 (08:34→20:23)
[2022-05-31] MEDS: THIAMINE 100 MG TAB PO SCH (08:34)
[2022-05-31] MEDS: SERTRALINE 100 MG TAB PO SCH (08:34)
[2022-05-31] MEDS: ASPIRIN 81MG ENTERIC TABLET PO SCH (08:34)
[2022-05-31] MEDS: CLOPIDOGREL 75 MG TAB PO SCH (08:34)
[2022-05-31] MEDS: ATORVASTATIN 20 MG TAB PO SCH (08:35)
[2022-05-31] MEDS: PANTOPRAZOLE 40MG TAB (PROTONIX) PO SCH (08:35)
[2022-05-31] MEDS: ISOSORBIDE MON. (IMDUR) 30MG XR TAB PO SCH (08:35)
[2022-05-31] MEDS: SYMBICORT 160/4.5MCG INHALER 6GM INH SCH ×2 (11:06→20:47)
[2022-05-31 14:00] VITALS: BP 103/72
[2022-05-31] MEDS: lisinopriL 5 MG TAB PO SCH (19:44)
[2022-05-31 22:00] VITALS: BP 115/67
[2022-06-01] MEDS: HEPARIN SOD (PORCINE) 5000UNITS/ML 1ML VIAL/SYRINGE SC SCH ×3 (05:26→23:21)
[2022-06-01 06:00] VITALS: BP 133/75
[2022-06-01] MEDS: SYMBICORT 160/4.5MCG INHALER 6GM INH SCH ×2 (08:24→20:11)
[2022-06-01 08:30] VITALS: BP 112/68
[2022-06-01] MEDS: DIVALPROEX 250MG TAB PO SCH ×2 (09:00→20:39)
[2022-06-01] MEDS: ASPIRIN 81MG ENTERIC TABLET PO SCH (09:00)
[2022-06-01] MEDS: INSULIN LISPRO (NovoLOG) PER UNIT SC SCH ×5 (09:00→20:41)
[2022-06-01] MEDS: ISOSORBIDE MON. (IMDUR) 30MG XR TAB PO SCH (09:01)
[2022-06-01] MEDS: PANTOPRAZOLE 40MG TAB (PROTONIX) PO SCH (09:01)
[2022-06-01] MEDS: THIAMINE 100 MG TAB PO SCH (09:01)
[2022-06-01] MEDS: ATORVASTATIN 20 MG TAB PO SCH (09:01)
[2022-06-01] MEDS: SERTRALINE 100 MG TAB PO SCH (09:01)
[2022-06-01] MEDS: CLOPIDOGREL 75 MG TAB PO SCH (09:01)
[2022-06-01] MEDS: LEVEMIR (INSULIN DETEMIR) 1 UNITS/0.01ML SC SCH ×2 (09:25→20:40)
[2022-06-01 13:45] VITALS: BP 110/70
[2022-06-01] MEDS: lisinopriL 5 MG TAB PO SCH (21:00)
[2022-06-02 06:00] VITALS: BP 134/79
[2022-06-02] MEDS: HEPARIN SOD (PORCINE) 5000UNITS/ML 1ML VIAL/SYRINGE SC SCH ×3 (06:50→21:13)
[2022-06-02] MEDS: INSULIN LISPRO (NovoLOG) PER UNIT SC SCH ×3 (06:54→12:59)
[2022-06-02] MEDS: SYMBICORT 160/4.5MCG INHALER 6GM INH SCH ×2 (07:40→19:13)
[2022-06-02 07:45] VITALS: BP 126/78
[2022-06-02] MEDS: LEVEMIR (INSULIN DETEMIR) 1 UNITS/0.01ML SC SCH ×2 (09:00→21:14)
[2022-06-02] MEDS: ASPIRIN 81MG ENTERIC TABLET PO SCH (10:09)
[2022-06-02] MEDS: ATORVASTATIN 20 MG TAB PO SCH (10:09)
[2022-06-02] MEDS: PANTOPRAZOLE 40MG TAB (PROTONIX) PO SCH (10:09)
[2022-06-02] MEDS: THIAMINE 100 MG TAB PO SCH (10:10)
[2022-06-02] MEDS: SERTRALINE 100 MG TAB PO SCH (10:10)
[2022-06-02] MEDS: ISOSORBIDE MON. (IMDUR) 30MG XR TAB PO SCH (10:10)
[2022-06-02] MEDS: CLOPIDOGREL 75 MG TAB PO SCH (10:10)
[2022-06-02] MEDS: DIVALPROEX 250MG TAB PO SCH ×2 (10:11→21:13)
[2022-06-02] MEDS ORDERED: PILL CUTTER 1 EACH XX ONE (10:13)
[2022-06-02 14:28] VITALS: BP 102/72
[2022-06-02] MEDS ORDERED: INSULIN LISPRO (NovoLOG) PER UNIT SC STA (16:58)
[2022-06-02] MEDS ORDERED: LEVEMIR (INSULIN DETEMIR) 1 UNITS/0.01ML SC SCH (21:00)
[2022-06-02] MEDS: lisinopriL 5 MG TAB PO SCH (21:00)
[2022-06-03 06:00] VITALS: BP 125/80
[2022-06-03] MEDS: HEPARIN SOD (PORCINE) 5000UNITS/ML 1ML VIAL/SYRINGE SC SCH ×3 (06:53→21:22)
[2022-06-03] MEDS: SYMBICORT 160/4.5MCG INHALER 6GM INH SCH ×2 (07:21→19:03)
[2022-06-03 08:00] VITALS: BP 110/74
[2022-06-03] MEDS: ISOSORBIDE MON. (IMDUR) 30MG XR TAB PO SCH (09:00)
[2022-06-03] MEDS: LEVEMIR (INSULIN DETEMIR) 1 UNITS/0.01ML SC SCH ×2 (09:23→21:22)
[2022-06-03] MEDS: INSULIN LISPRO (NovoLOG) PER UNIT SC SCH ×3 (09:23→18:38)
[2022-06-03] MEDS: ASPIRIN 81MG ENTERIC TABLET PO SCH (10:59)
[2022-06-03] MEDS: DIVALPROEX 250MG TAB PO SCH ×2 (11:00→21:21)
[2022-06-03] MEDS: THIAMINE 100 MG TAB PO SCH (11:01)
[2022-06-03] MEDS: SERTRALINE 100 MG TAB PO SCH (11:01)
[2022-06-03] MEDS: ATORVASTATIN 20 MG TAB PO SCH (11:02)
[2022-06-03] MEDS: CLOPIDOGREL 75 MG TAB PO SCH (11:03)
[2022-06-03] MEDS: PANTOPRAZOLE 40MG TAB (PROTONIX) PO SCH (11:03)
[2022-06-03 14:00] VITALS: BP 110/74
[2022-06-03 20:00] VITALS: BP 111/73
[2022-06-03] MEDS: lisinopriL 5 MG TAB PO SCH (21:00)
[2022-06-04] MEDS: HEPARIN SOD (PORCINE) 5000UNITS/ML 1ML VIAL/SYRINGE SC SCH ×3 (05:25→21:49)
[2022-06-04 06:00] VITALS: BP 118/66
[2022-06-04] MEDS: SYMBICORT 160/4.5MCG INHALER 6GM INH SCH ×2 (07:42→19:46)
[2022-06-04 08:00] VITALS: BP 138/86
[2022-06-04] MEDS: INSULIN LISPRO (NovoLOG) PER UNIT SC SCH ×3 (08:08→18:22)
[2022-06-04] MEDS: LEVEMIR (INSULIN DETEMIR) 1 UNITS/0.01ML SC SCH ×2 (08:11→21:48)
[2022-06-04] MEDS: ASPIRIN 81MG ENTERIC TABLET PO SCH (10:34)
[2022-06-04] MEDS: THIAMINE 100 MG TAB PO SCH (10:34)
[2022-06-04] MEDS: DIVALPROEX 250MG TAB PO SCH ×2 (10:34→21:48)
[2022-06-04] MEDS: ATORVASTATIN 20 MG TAB PO SCH (10:35)
[2022-06-04] MEDS: PANTOPRAZOLE 40MG TAB (PROTONIX) PO SCH (10:35)
[2022-06-04] MEDS: SERTRALINE 100 MG TAB PO SCH (10:35)
[2022-06-04] MEDS: ISOSORBIDE MON. (IMDUR) 30MG XR TAB PO SCH (10:36)
[2022-06-04] MEDS: CLOPIDOGREL 75 MG TAB PO SCH (10:37)
[2022-06-04 14:00] VITALS: BP 110/66
[2022-06-04 20:00] VITALS: BP 107/69
[2022-06-04] MEDS: lisinopriL 5 MG TAB PO SCH (21:00)
[2022-06-05 06:00] VITALS: BP 130/82
[2022-06-05] MEDS: HEPARIN SOD (PORCINE) 5000UNITS/ML 1ML VIAL/SYRINGE SC SCH ×3 (06:26→20:40)
[2022-06-05] MEDS: SYMBICORT 160/4.5MCG INHALER 6GM INH SCH ×2 (07:29→20:00)
[2022-06-05] MEDS: INSULIN LISPRO (NovoLOG) PER UNIT SC SCH ×3 (07:30→17:10)
[2022-06-05] MEDS: LEVEMIR (INSULIN DETEMIR) 1 UNITS/0.01ML SC SCH ×2 (09:00→20:40)
[2022-06-05] MEDS ORDERED: VALPROIC ACID 250MG CAP PO SCH (09:00)
[2022-06-05] MEDS: DIVALPROEX 250MG TAB PO SCH ×2 (09:21→20:39)
[2022-06-05] MEDS: ASPIRIN 81MG ENTERIC TABLET PO SCH (09:22)
[2022-06-05] MEDS: ISOSORBIDE MON. (IMDUR) 30MG XR TAB PO SCH (09:22)
[2022-06-05] MEDS: CLOPIDOGREL 75 MG TAB PO SCH (09:22)
[2022-06-05] MEDS: SERTRALINE 100 MG TAB PO SCH (09:22)
[2022-06-05] MEDS: PANTOPRAZOLE 40MG TAB (PROTONIX) PO SCH (09:22)
[2022-06-05] MEDS: ATORVASTATIN 20 MG TAB PO SCH (09:22)
[2022-06-05] MEDS: THIAMINE 100 MG TAB PO SCH (09:22)
[2022-06-05] MEDS: lisinopriL 5 MG TAB PO SCH (20:39)
[2022-06-06 05:20] VITALS: BP 120/75
[2022-06-06] MEDS: HEPARIN SOD (PORCINE) 5000UNITS/ML 1ML VIAL/SYRINGE SC SCH ×3 (06:31→21:12)
[2022-06-06] MEDS: SYMBICORT 160/4.5MCG INHALER 6GM INH SCH ×2 (08:00→20:00)
[2022-06-06] MEDS: SERTRALINE 100 MG TAB PO SCH (08:43)
[2022-06-06] MEDS: PANTOPRAZOLE 40MG TAB (PROTONIX) PO SCH (08:43)
[2022-06-06] MEDS: ISOSORBIDE MON. (IMDUR) 30MG XR TAB PO SCH (08:43)
[2022-06-06] MEDS: ASPIRIN 81MG ENTERIC TABLET PO SCH (08:43)
[2022-06-06] MEDS: ATORVASTATIN 20 MG TAB PO SCH (08:43)
[2022-06-06] MEDS: THIAMINE 100 MG TAB PO SCH (08:43)
[2022-06-06] MEDS: LEVEMIR (INSULIN DETEMIR) 1 UNITS/0.01ML SC SCH ×2 (08:44→21:12)
[2022-06-06] MEDS: INSULIN LISPRO (NovoLOG) PER UNIT SC SCH ×3 (08:44→16:49)
[2022-06-06] MEDS: CLOPIDOGREL 75 MG TAB PO SCH (09:00)
[2022-06-06] MEDS: DIVALPROEX 250MG TAB PO SCH ×2 (09:00→21:13)
[2022-06-06] MEDS: lisinopriL 5 MG TAB PO SCH (21:00)
[2022-06-07 05:40] VITALS: BP 116/74
[2022-06-07] MEDS: HEPARIN SOD (PORCINE) 5000UNITS/ML 1ML VIAL/SYRINGE SC SCH ×3 (05:53→21:53)
[2022-06-07] MEDS: INSULIN LISPRO (NovoLOG) PER UNIT SC SCH ×3 (07:30→17:34)
[2022-06-07] MEDS: SYMBICORT 160/4.5MCG INHALER 6GM INH SCH ×2 (07:51→19:31)
[2022-06-07] MEDS: LEVEMIR (INSULIN DETEMIR) 1 UNITS/0.01ML SC SCH ×2 (08:17→21:53)
[2022-06-07] MEDS: CLOPIDOGREL 75 MG TAB PO SCH (08:20)
[2022-06-07] MEDS: PANTOPRAZOLE 40MG TAB (PROTONIX) PO SCH (08:20)
[2022-06-07] MEDS: ASPIRIN 81MG ENTERIC TABLET PO SCH (08:21)
[2022-06-07] MEDS: DIVALPROEX 250MG TAB PO SCH ×2 (08:21→21:52)
[2022-06-07] MEDS: THIAMINE 100 MG TAB PO SCH (08:21)
[2022-06-07] MEDS: SERTRALINE 100 MG TAB PO SCH (08:21)
[2022-06-07] MEDS: ATORVASTATIN 20 MG TAB PO SCH (08:21)
[2022-06-07] MEDS: ISOSORBIDE MON. (IMDUR) 30MG XR TAB PO SCH (08:22)
[2022-06-07] MEDS: lisinopriL 5 MG TAB PO SCH (21:55)
[2022-06-08] MEDS: HEPARIN SOD (PORCINE) 5000UNITS/ML 1ML VIAL/SYRINGE SC SCH ×3 (05:49→21:26)
[2022-06-08 06:00] VITALS: BP 112/74
[2022-06-08 06:22] LABS: BASO # 0.1 10^3/uL (0.0-0.2); BASO % 0.8 % (0.0-1.0); EOS # 0.1 10^3/uL (0.0-0.5); HEMATOCRIT 43.8 % (42.0-52.0); HEMOGLOBIN 14.8 g/dl (13.5-17.5); LYMPH # 3.1 10^3/uL (1.5-5.0); LYMPH % 37.6 % (24.0-44.0); MEAN CORPUSCULAR HEMOGLOBIN 31.2 pg (27.0-33.0); MEAN CORPUSCULAR HGB CONC 33.8 g/dl (32.0-36.5); MEAN CORPUSCULAR VOLUME 92.4 fl (80.0-96.0); MONO # 0.7 10^3/uL (0.0-0.8); MONO % 8.3 % (2.0-8.0); NEUTROPHILS # 4.3 10^3/uL (1.5-8.5); NEUTROPHILS % 51.7 % (36.0-66.0); PLATELET COUNT, AUTOMATED 246 10^3/uL (150-450); RED BLOOD COUNT 4.74 10^6/uL (4.30-6.10); WHITE BLOOD COUNT 8.3 10^3/uL (4.0-10.0)
[2022-06-08 06:54] LABS: VALPROIC ACID (DEPAKOTE) 80.3 UG/ML (50.0-100.0)
[2022-06-08 06:55] LABS: BLOOD UREA NITROGEN 15 MG/DL (9-23); CALCIUM LEVEL 9.2 MG/DL (8.5-10.1); CARBON DIOXIDE LEVEL 32 MMOL/L (20-31); CHLORIDE LEVEL 104 MMOL/L (98-107); CREATININE FOR GFR 0.96 MG/DL (0.70-1.30); GLOMERULAR FILTRATION RATE > 60.0 (>56); GLUCOSE, FASTING 233 MG/DL (60-100); POTASSIUM SERUM 4.4 MMOL/L (3.5-5.1); SODIUM LEVEL 141 MMOL/L (136-145)
[2022-06-08] MEDS: SYMBICORT 160/4.5MCG INHALER 6GM INH SCH ×2 (08:15→19:56)
[2022-06-08] MEDS: INSULIN LISPRO (NovoLOG) PER UNIT SC SCH ×3 (08:32→17:07)
[2022-06-08] MEDS: LEVEMIR (INSULIN DETEMIR) 1 UNITS/0.01ML SC SCH ×2 (08:32→21:26)
[2022-06-08] MEDS: PANTOPRAZOLE 40MG TAB (PROTONIX) PO SCH (08:33)
[2022-06-08] MEDS: THIAMINE 100 MG TAB PO SCH (08:33)
[2022-06-08] MEDS: ISOSORBIDE MON. (IMDUR) 30MG XR TAB PO SCH (08:33)
[2022-06-08] MEDS: ASPIRIN 81MG ENTERIC TABLET PO SCH (08:33)
[2022-06-08] MEDS: SERTRALINE 100 MG TAB PO SCH (08:33)
[2022-06-08] MEDS: DIVALPROEX 250MG TAB PO SCH ×2 (08:34→21:25)
[2022-06-08] MEDS: CLOPIDOGREL 75 MG TAB PO SCH (08:34)
[2022-06-08] MEDS: ATORVASTATIN 20 MG TAB PO SCH (08:34)
[2022-06-08] MEDS: lisinopriL 5 MG TAB PO SCH (21:00)
[2022-06-09 06:00] VITALS: BP 113/67
[2022-06-09] MEDS: HEPARIN SOD (PORCINE) 5000UNITS/ML 1ML VIAL/SYRINGE SC SCH ×3 (06:04→21:42)
[2022-06-09] MEDS: SYMBICORT 160/4.5MCG INHALER 6GM INH SCH ×2 (07:51→18:28)
[2022-06-09] MEDS: THIAMINE 100 MG TAB PO SCH (08:17)
[2022-06-09] MEDS: ASPIRIN 81MG ENTERIC TABLET PO SCH (08:17)
[2022-06-09] MEDS: DIVALPROEX 250MG TAB PO SCH ×2 (08:18→21:41)
[2022-06-09] MEDS: ATORVASTATIN 20 MG TAB PO SCH (08:18)
[2022-06-09] MEDS: SERTRALINE 100 MG TAB PO SCH (08:20)
[2022-06-09] MEDS: LEVEMIR (INSULIN DETEMIR) 1 UNITS/0.01ML SC SCH ×2 (08:20→21:42)
[2022-06-09] MEDS: CLOPIDOGREL 75 MG TAB PO SCH (08:20)
[2022-06-09] MEDS: INSULIN LISPRO (NovoLOG) PER UNIT SC SCH ×3 (08:20→17:42)
[2022-06-09] MEDS: PANTOPRAZOLE 40MG TAB (PROTONIX) PO SCH (08:20)
[2022-06-09] MEDS: ISOSORBIDE MON. (IMDUR) 30MG XR TAB PO SCH (08:24)
[2022-06-09] MEDS: traZODone 50 MG TAB PO PRN (21:41)
[2022-06-09] MEDS: lisinopriL 5 MG TAB PO SCH (21:41)
[2022-06-10] MEDS: HEPARIN SOD (PORCINE) 5000UNITS/ML 1ML VIAL/SYRINGE SC SCH ×3 (05:29→20:39)
[2022-06-10 06:27] LABS: BASO # 0.1 10^3/uL (0.0-0.2); BASO % 0.7 % (0.0-1.0); EOS # 0.1 10^3/uL (0.0-0.5); EOS % 0.6 % (0.0-3.0); HEMATOCRIT 42.8 % (42.0-52.0); LYMPH # 3.7 10^3/uL (1.5-5.0); LYMPH % 38.7 % (24.0-44.0); MEAN CORPUSCULAR HEMOGLOBIN 30.4 pg (27.0-33.0); MEAN CORPUSCULAR HGB CONC 32.7 g/dl (32.0-36.5); MONO # 0.8 10^3/uL (0.0-0.8); MONO % 8.2 % (2.0-8.0); NEUTROPHILS % 51.2 % (36.0-66.0); PLATELET COUNT, AUTOMATED 213 10^3/uL (150-450); WHITE BLOOD COUNT 9.7 10^3/uL (4.0-10.0)
[2022-06-10 06:37] LABS: BLOOD UREA NITROGEN 19 MG/DL (9-23); CALCIUM LEVEL 8.9 MG/DL (8.5-10.1); CARBON DIOXIDE LEVEL 24 MMOL/L (20-31); CHLORIDE LEVEL 106 MMOL/L (98-107); CREATININE FOR GFR 0.69 MG/DL (0.70-1.30); GLOMERULAR FILTRATION RATE > 60.0 (>56); GLUCOSE, FASTING 165 MG/DL (60-100); SODIUM LEVEL 142 MMOL/L (136-145)
[2022-06-10] MEDS: SYMBICORT 160/4.5MCG INHALER 6GM INH SCH ×2 (08:20→20:19)
[2022-06-10] MEDS: LEVEMIR (INSULIN DETEMIR) 1 UNITS/0.01ML SC SCH ×2 (08:47→20:39)
[2022-06-10] MEDS: INSULIN LISPRO (NovoLOG) PER UNIT SC SCH ×3 (08:48→18:09)
[2022-06-10] MEDS: CLOPIDOGREL 75 MG TAB PO SCH (08:48)
[2022-06-10] MEDS: PANTOPRAZOLE 40MG TAB (PROTONIX) PO SCH (08:48)
[2022-06-10] MEDS: ATORVASTATIN 20 MG TAB PO SCH (08:48)
[2022-06-10] MEDS: DIVALPROEX 250MG TAB PO SCH ×2 (08:48→20:38)
[2022-06-10] MEDS: THIAMINE 100 MG TAB PO SCH (08:49)
[2022-06-10] MEDS: SERTRALINE 100 MG TAB PO SCH (08:49)
[2022-06-10] MEDS: ASPIRIN 81MG ENTERIC TABLET PO SCH (08:49)
[2022-06-10] MEDS: ISOSORBIDE MON. (IMDUR) 30MG XR TAB PO SCH (08:49)
[2022-06-10] MEDS: lisinopriL 5 MG TAB PO SCH (20:34)
[2022-06-11 05:58] VITALS: BP 128/66
[2022-06-11] MEDS: HEPARIN SOD (PORCINE) 5000UNITS/ML 1ML VIAL/SYRINGE SC SCH ×3 (06:13→20:45)
[2022-06-11] MEDS: SYMBICORT 160/4.5MCG INHALER 6GM INH SCH ×2 (07:39→20:01)
[2022-06-11] MEDS: ISOSORBIDE MON. (IMDUR) 30MG XR TAB PO SCH (09:00)
[2022-06-11] MEDS: SERTRALINE 100 MG TAB PO SCH (09:31)
[2022-06-11] MEDS: PANTOPRAZOLE 40MG TAB (PROTONIX) PO SCH (09:31)
[2022-06-11] MEDS: DIVALPROEX 250MG TAB PO SCH ×2 (09:31→20:45)
[2022-06-11] MEDS: ASPIRIN 81MG ENTERIC TABLET PO SCH (09:31)
[2022-06-11] MEDS: THIAMINE 100 MG TAB PO SCH (09:31)
[2022-06-11] MEDS: CLOPIDOGREL 75 MG TAB PO SCH (09:32)
[2022-06-11] MEDS: ATORVASTATIN 20 MG TAB PO SCH (09:32)
[2022-06-11] MEDS: INSULIN LISPRO (NovoLOG) PER UNIT SC SCH ×3 (09:33→18:07)
[2022-06-11] MEDS: LEVEMIR (INSULIN DETEMIR) 1 UNITS/0.01ML SC SCH ×2 (09:33→20:45)
[2022-06-11] MEDS: traZODone 50 MG TAB PO PRN (20:45)
[2022-06-11] MEDS: lisinopriL 5 MG TAB PO SCH (20:47)
[2022-06-12 05:36] VITALS: BP 106/66
[2022-06-12] MEDS: HEPARIN SOD (PORCINE) 5000UNITS/ML 1ML VIAL/SYRINGE SC SCH ×3 (06:30→21:15)
[2022-06-12] MEDS: SYMBICORT 160/4.5MCG INHALER 6GM INH SCH ×2 (07:51→18:38)
[2022-06-12] MEDS: ISOSORBIDE MON. (IMDUR) 30MG XR TAB PO SCH (09:00)
[2022-06-12] MEDS: LEVEMIR (INSULIN DETEMIR) 1 UNITS/0.01ML SC SCH ×2 (10:03→21:15)
[2022-06-12] MEDS: THIAMINE 100 MG TAB PO SCH (10:03)
[2022-06-12] MEDS: INSULIN LISPRO (NovoLOG) PER UNIT SC SCH ×3 (10:03→18:35)
[2022-06-12] MEDS: ASPIRIN 81MG ENTERIC TABLET PO SCH (10:04)
[2022-06-12] MEDS: ATORVASTATIN 20 MG TAB PO SCH (10:04)
[2022-06-12] MEDS: SERTRALINE 100 MG TAB PO SCH (10:04)
[2022-06-12] MEDS: CLOPIDOGREL 75 MG TAB PO SCH (10:04)
[2022-06-12] MEDS: PANTOPRAZOLE 40MG TAB (PROTONIX) PO SCH (10:04)
[2022-06-12] MEDS: DIVALPROEX 250MG TAB PO SCH ×2 (10:05→21:13)
[2022-06-12] MEDS: lisinopriL 5 MG TAB PO SCH (21:00)
[2022-06-12] MEDS: traZODone 50 MG TAB PO PRN (21:12)
[2022-06-13 06:00] VITALS: BP 122/73
[2022-06-13] MEDS: HEPARIN SOD (PORCINE) 5000UNITS/ML 1ML VIAL/SYRINGE SC SCH ×3 (06:06→21:19)
[2022-06-13] MEDS: INSULIN LISPRO (NovoLOG) PER UNIT SC SCH ×3 (07:30→17:17)
[2022-06-13] MEDS: LEVEMIR (INSULIN DETEMIR) 1 UNITS/0.01ML SC SCH ×2 (07:50→20:47)
[2022-06-13] MEDS: SYMBICORT 160/4.5MCG INHALER 6GM INH SCH ×2 (08:00→19:48)
[2022-06-13] MEDS: ISOSORBIDE MON. (IMDUR) 30MG XR TAB PO SCH (09:00)
[2022-06-13] MEDS: THIAMINE 100 MG TAB PO SCH (09:16)
[2022-06-13] MEDS: ASPIRIN 81MG ENTERIC TABLET PO SCH (09:16)
[2022-06-13] MEDS: DIVALPROEX 250MG TAB PO SCH ×2 (09:16→20:47)
[2022-06-13] MEDS: ATORVASTATIN 20 MG TAB PO SCH (09:17)
[2022-06-13] MEDS: SERTRALINE 100 MG TAB PO SCH (09:17)
[2022-06-13] MEDS: PANTOPRAZOLE 40MG TAB (PROTONIX) PO SCH (09:18)
[2022-06-13] MEDS: CLOPIDOGREL 75 MG TAB PO SCH (09:18)
[2022-06-13] MEDS: lisinopriL 5 MG TAB PO SCH (21:00)
[2022-06-14] MEDS: traZODone 50 MG TAB PO PRN ×2 (00:53→21:29)
[2022-06-14] MEDS: ACETAMINOPHEN TAB 650MG DOSE (2X325MG) PO PRN (01:46)
[2022-06-14 06:00] VITALS: BP 121/77
[2022-06-14] MEDS: HEPARIN SOD (PORCINE) 5000UNITS/ML 1ML VIAL/SYRINGE SC SCH ×3 (06:57→21:20)
[2022-06-14] MEDS: INSULIN LISPRO (NovoLOG) PER UNIT SC SCH ×3 (06:58→17:25)
[2022-06-14] MEDS: SYMBICORT 160/4.5MCG INHALER 6GM INH SCH ×2 (07:24→19:37)
[2022-06-14] MEDS: ISOSORBIDE MON. (IMDUR) 30MG XR TAB PO SCH (09:00)
[2022-06-14] MEDS: ATORVASTATIN 20 MG TAB PO SCH (09:45)
[2022-06-14] MEDS: SERTRALINE 100 MG TAB PO SCH (09:45)
[2022-06-14] MEDS: PANTOPRAZOLE 40MG TAB (PROTONIX) PO SCH (09:46)
[2022-06-14] MEDS: ASPIRIN 81MG ENTERIC TABLET PO SCH (09:46)
[2022-06-14] MEDS: THIAMINE 100 MG TAB PO SCH (09:46)
[2022-06-14] MEDS: CLOPIDOGREL 75 MG TAB PO SCH (09:46)
[2022-06-14] MEDS: DIVALPROEX 250MG TAB PO SCH ×2 (09:47→21:19)
[2022-06-14] MEDS: LEVEMIR (INSULIN DETEMIR) 1 UNITS/0.01ML SC SCH ×2 (09:47→21:20)
[2022-06-14] MEDS: lisinopriL 5 MG TAB PO SCH (21:21)
[2022-06-15] VITALS (7 sets, daily range): BP systolic 78–134; BP diastolic 44–79
[2022-06-15] MEDS: HEPARIN SOD (PORCINE) 5000UNITS/ML 1ML VIAL/SYRINGE SC SCH ×3 (05:33→20:57)
[2022-06-15] MEDS: SYMBICORT 160/4.5MCG INHALER 6GM INH SCH ×2 (07:28→19:44)
[2022-06-15] MEDS: LEVEMIR (INSULIN DETEMIR) 1 UNITS/0.01ML SC SCH ×2 (07:53→20:58)
[2022-06-15] MEDS: ATORVASTATIN 20 MG TAB PO SCH (07:54)
[2022-06-15] MEDS: INSULIN LISPRO (NovoLOG) PER UNIT SC SCH ×3 (07:54→17:14)
[2022-06-15] MEDS: ASPIRIN 81MG ENTERIC TABLET PO SCH (07:54)
[2022-06-15] MEDS: PANTOPRAZOLE 40MG TAB (PROTONIX) PO SCH (07:54)
[2022-06-15] MEDS: CLOPIDOGREL 75 MG TAB PO SCH (07:54)
[2022-06-15] MEDS: THIAMINE 100 MG TAB PO SCH (07:55)
[2022-06-15] MEDS: SERTRALINE 100 MG TAB PO SCH (07:55)
[2022-06-15] MEDS: DIVALPROEX 250MG TAB PO SCH ×2 (07:55→20:57)
[2022-06-15] MEDS: ISOSORBIDE MON. (IMDUR) 30MG XR TAB PO SCH (07:59)
[2022-06-15] MEDS: MIDODRINE 5 MG TAB PO SCH ×3 (09:50→16:00)
[2022-06-15] MEDS ORDERED: NS 1,000 ML IV ONE (15:50)
[2022-06-15 16:08] LABS: BASO # 0.1 10^3/uL (0.0-0.2); BASO % 0.8 % (0.0-1.0); EOS # 0.1 10^3/uL (0.0-0.5); HEMATOCRIT 44.2 % (42.0-52.0); HEMOGLOBIN 14.2 g/dl (13.5-17.5); LYMPH % 28.8 % (24.0-44.0); MEAN CORPUSCULAR HEMOGLOBIN 30.1 pg (27.0-33.0); MEAN CORPUSCULAR HGB CONC 32.1 g/dl (32.0-36.5); MEAN CORPUSCULAR VOLUME 93.8 fl (80.0-96.0); MONO # 0.7 10^3/uL (0.0-0.8); MONO % 7.1 % (2.0-8.0); NEUTROPHILS # 6.3 10^3/uL (1.5-8.5); NEUTROPHILS % 61.2 % (36.0-66.0); PLATELET COUNT, AUTOMATED 219 10^3/uL (150-450); RED BLOOD COUNT 4.71 10^6/uL (4.30-6.10); WHITE BLOOD COUNT 10.3 10^3/uL (4.0-10.0)
[2022-06-15 16:28] LABS: ERYTHROCYTE SEDIMENTATION RATE 7 mm/hr (0-20)
[2022-06-15] MEDS ORDERED: ZOLO100T PO (16:28)
[2022-06-15] MEDS ORDERED: ASPI81TAEC PO (16:28)
[2022-06-15] MEDS ORDERED: INSUHUMDS SC (16:28)
[2022-06-15] MEDS ORDERED: LEVE1INJ5 SC (16:28)
[2022-06-15] MEDS ORDERED: CLOP75TA2 PO (16:28)
[2022-06-15] MEDS ORDERED: B-1100TA2 PO (16:28)
[2022-06-15] MEDS ORDERED: VITA50TA47 PO (16:28)
[2022-06-15 16:30] LABS: C REACTIVE PROTEIN QUANTITATIV < 0.40 MG/DL (<1.0)
[2022-06-15] MEDS ORDERED: NS 1,000 ML IV SCH (16:30)
[2022-06-15] MEDS ORDERED: DEPA250T32 PO (16:31)
[2022-06-15] MEDS ORDERED: DEPA1TAB3 PO (16:31)
[2022-06-15] MEDS ORDERED: ATOR40TA75 PO (16:31)
[2022-06-15 16:32] LABS: ALBUMIN 3.5 G/DL (3.2-5.2); ALKALINE PHOSPHATASE 60 U/L (46-116); ALT/SGPT 14 U/L (7.0-40); AST/SGOT 13 U/L (<34); BILIRUBIN,TOTAL 0.2 MG/DL (0.3-1.2); BLOOD UREA NITROGEN 23 MG/DL (9-23); CALCIUM LEVEL 9.1 MG/DL (8.5-10.1); CARBON DIOXIDE LEVEL 30 MMOL/L (20-31); CHLORIDE LEVEL 103 MMOL/L (98-107); CREATININE FOR GFR 1.32 MG/DL (0.70-1.30); GLOMERULAR FILTRATION RATE > 60.0 (>56); GLUCOSE, FASTING 91 MG/DL (60-100); POTASSIUM SERUM 4.9 MMOL/L (3.5-5.1); SODIUM LEVEL 139 MMOL/L (136-145); TOTAL PROTEIN 6.6 G/DL (5.7-8.2)
[2022-06-15] MEDS ORDERED: PANT40TA29 PO (16:33)
[2022-06-15] MEDS ORDERED: SYMB16INH INH (16:33)
[2022-06-15] MEDS ORDERED: COMBAER6 INH (16:33)
[2022-06-15 16:35] LABS: FREE THYROXINE INDEX 2.9 % (1.4-3.8); THYROID STIMULATING HORMONE 4.427 uIU/ML (0.55-4.78)
[2022-06-15] MEDS ORDERED: BLOOKIT21 XX (16:36)
[2022-06-15] MEDS ORDERED: PEN1MIS22 SC (16:36)
[2022-06-15] MEDS ORDERED: LANC30MI XX (16:36)
[2022-06-15] MEDS ORDERED: GLUC1TES2 XX (16:36)
[2022-06-15] MEDS ORDERED: ALCOPAD25 TOP (16:36)
[2022-06-15] MEDS ORDERED: VENTAER INH (16:42)
[2022-06-15] MEDS ORDERED: SELF1KIT MC (16:43)
[2022-06-15] MEDS: traZODone 50 MG TAB PO PRN (21:11)
[2022-06-16 06:00] VITALS: BP 107/54
[2022-06-16] MEDS: HEPARIN SOD (PORCINE) 5000UNITS/ML 1ML VIAL/SYRINGE SC SCH ×3 (06:44→21:03)
[2022-06-16] MEDS: INSULIN LISPRO (NovoLOG) PER UNIT SC SCH ×3 (07:52→16:51)
[2022-06-16] MEDS: SYMBICORT 160/4.5MCG INHALER 6GM INH SCH ×3 (08:00→20:11)
[2022-06-16] MEDS: LEVEMIR (INSULIN DETEMIR) 1 UNITS/0.01ML SC SCH ×2 (09:20→21:01)
[2022-06-16] MEDS: ATORVASTATIN 20 MG TAB PO SCH (09:21)
[2022-06-16] MEDS: THIAMINE 100 MG TAB PO SCH (09:21)
[2022-06-16] MEDS: ASPIRIN 81MG ENTERIC TABLET PO SCH (09:21)
[2022-06-16] MEDS: PANTOPRAZOLE 40MG TAB (PROTONIX) PO SCH (09:22)
[2022-06-16] MEDS: SERTRALINE 100 MG TAB PO SCH (09:22)
[2022-06-16] MEDS: CLOPIDOGREL 75 MG TAB PO SCH (09:22)
[2022-06-16] MEDS: DIVALPROEX 250MG TAB PO SCH ×2 (09:22→21:02)
[2022-06-16] MEDS: traZODone 50 MG TAB PO PRN (21:02)
[2022-06-16] MEDS: ACETAMINOPHEN TAB 650MG DOSE (2X325MG) PO PRN (22:40)
[2022-06-17] MEDS: LIDOCAINE 5% (LIDODERM) PATCH TD PRN (01:45)
[2022-06-17 06:00] VITALS: BP 113/58
[2022-06-17] MEDS: HEPARIN SOD (PORCINE) 5000UNITS/ML 1ML VIAL/SYRINGE SC SCH ×3 (06:36→20:22)
[2022-06-17] MEDS: INSULIN LISPRO (NovoLOG) PER UNIT SC SCH ×3 (07:30→18:23)
[2022-06-17] MEDS: SYMBICORT 160/4.5MCG INHALER 6GM INH SCH ×2 (08:00→20:07)
[2022-06-17] MEDS: LEVEMIR (INSULIN DETEMIR) 1 UNITS/0.01ML SC SCH ×2 (09:00→20:46)
[2022-06-17] MEDS: SERTRALINE 100 MG TAB PO SCH (11:57)
[2022-06-17] MEDS: ACETAMINOPHEN TAB 650MG DOSE (2X325MG) PO PRN (11:57)
[2022-06-17] MEDS: ASPIRIN 81MG ENTERIC TABLET PO SCH (11:58)
[2022-06-17] MEDS: PANTOPRAZOLE 40MG TAB (PROTONIX) PO SCH (11:58)
[2022-06-17] MEDS: ATORVASTATIN 20 MG TAB PO SCH (11:58)
[2022-06-17] MEDS: THIAMINE 100 MG TAB PO SCH (11:58)
[2022-06-17] MEDS: DIVALPROEX 250MG TAB PO SCH ×2 (11:58→20:46)
[2022-06-17] MEDS: CLOPIDOGREL 75 MG TAB PO SCH (11:59)
[2022-06-17] MEDS: traZODone 50 MG TAB PO PRN (20:46)
[2022-06-18] MEDS: ACETAMINOPHEN TAB 650MG DOSE (2X325MG) PO PRN ×2 (03:33→19:47)
[2022-06-18] MEDS: HEPARIN SOD (PORCINE) 5000UNITS/ML 1ML VIAL/SYRINGE SC SCH ×3 (05:16→19:43)
[2022-06-18] MEDS: SYMBICORT 160/4.5MCG INHALER 6GM INH SCH ×2 (08:00→19:23)
[2022-06-18] MEDS: DIVALPROEX 250MG TAB PO SCH ×2 (09:18→19:47)
[2022-06-18] MEDS: LEVEMIR (INSULIN DETEMIR) 1 UNITS/0.01ML SC SCH ×2 (09:18→19:43)
[2022-06-18] MEDS: ASPIRIN 81MG ENTERIC TABLET PO SCH (09:18)
[2022-06-18] MEDS: INSULIN LISPRO (NovoLOG) PER UNIT SC SCH ×3 (09:18→17:39)
[2022-06-18] MEDS: SERTRALINE 100 MG TAB PO SCH (09:19)
[2022-06-18] MEDS: CLOPIDOGREL 75 MG TAB PO SCH (09:19)
[2022-06-18] MEDS: ATORVASTATIN 20 MG TAB PO SCH (09:19)
[2022-06-18] MEDS: THIAMINE 100 MG TAB PO SCH (09:19)
[2022-06-18] MEDS: PANTOPRAZOLE 40MG TAB (PROTONIX) PO SCH (09:19)
[2022-06-18] MEDS: traZODone 50 MG TAB PO PRN (19:47)
[2022-06-18] MEDS: LIDOCAINE 5% (LIDODERM) PATCH TD PRN (21:18)
[2022-06-19] MEDS: HEPARIN SOD (PORCINE) 5000UNITS/ML 1ML VIAL/SYRINGE SC SCH ×3 (05:14→21:08)
[2022-06-19 06:00] VITALS: BP 124/79
[2022-06-19] MEDS: SYMBICORT 160/4.5MCG INHALER 6GM INH SCH ×2 (08:12→20:04)
[2022-06-19] MEDS: LEVEMIR (INSULIN DETEMIR) 1 UNITS/0.01ML SC SCH ×2 (08:22→21:15)
[2022-06-19] MEDS: DIVALPROEX 250MG TAB PO SCH ×2 (08:23→21:16)
[2022-06-19] MEDS: ATORVASTATIN 20 MG TAB PO SCH (08:23)
[2022-06-19] MEDS: INSULIN LISPRO (NovoLOG) PER UNIT SC SCH ×3 (08:23→17:57)
[2022-06-19] MEDS: ASPIRIN 81MG ENTERIC TABLET PO SCH (08:23)
[2022-06-19] MEDS: THIAMINE 100 MG TAB PO SCH (08:24)
[2022-06-19] MEDS: PANTOPRAZOLE 40MG TAB (PROTONIX) PO SCH (08:24)
[2022-06-19] MEDS: CLOPIDOGREL 75 MG TAB PO SCH (08:24)
[2022-06-19] MEDS: SERTRALINE 100 MG TAB PO SCH (08:24)
[2022-06-19] MEDS: LIDOCAINE 5% (LIDODERM) PATCH TD PRN (17:57)
[2022-06-19] MEDS: ACETAMINOPHEN TAB 650MG DOSE (2X325MG) PO PRN (21:15)
[2022-06-20] MEDS ORDERED: IBUPROFEN 600MG TAB PO ONE (01:05)
[2022-06-20] MEDS: HEPARIN SOD (PORCINE) 5000UNITS/ML 1ML VIAL/SYRINGE SC SCH ×3 (05:57→21:47)
[2022-06-20 06:00] VITALS: BP 109/73
[2022-06-20] MEDS: SYMBICORT 160/4.5MCG INHALER 6GM INH SCH ×2 (07:49→19:13)
[2022-06-20] MEDS: INSULIN LISPRO (NovoLOG) PER UNIT SC SCH ×3 (08:27→17:39)
[2022-06-20] MEDS: LEVEMIR (INSULIN DETEMIR) 1 UNITS/0.01ML SC SCH ×2 (08:27→21:27)
[2022-06-20] MEDS: ATORVASTATIN 20 MG TAB PO SCH (08:28)
[2022-06-20] MEDS: DIVALPROEX 250MG TAB PO SCH ×2 (08:28→21:27)
[2022-06-20] MEDS: PANTOPRAZOLE 40MG TAB (PROTONIX) PO SCH (08:28)
[2022-06-20] MEDS: THIAMINE 100 MG TAB PO SCH (08:28)
[2022-06-20] MEDS: SERTRALINE 100 MG TAB PO SCH (08:28)
[2022-06-20] MEDS: CLOPIDOGREL 75 MG TAB PO SCH (08:28)
[2022-06-20] MEDS: ASPIRIN 81MG ENTERIC TABLET PO SCH (08:29)
[2022-06-20] MEDS: ACETAMINOPHEN TAB 650MG DOSE (2X325MG) PO PRN (08:29)
[2022-06-20] MEDS: traZODone 50 MG TAB PO PRN (23:13)
[2022-06-21] MEDS: HEPARIN SOD (PORCINE) 5000UNITS/ML 1ML VIAL/SYRINGE SC SCH ×2 (05:30→12:23)
[2022-06-21 06:00] VITALS: BP 127/83
[2022-06-21] MEDS: INSULIN LISPRO (NovoLOG) PER UNIT SC SCH ×2 (07:30→12:00)
[2022-06-21] MEDS: SYMBICORT 160/4.5MCG INHALER 6GM INH SCH (08:00)
[2022-06-21] MEDS: ATORVASTATIN 20 MG TAB PO SCH (08:39)
[2022-06-21] MEDS: PANTOPRAZOLE 40MG TAB (PROTONIX) PO SCH (08:39)
[2022-06-21] MEDS: ASPIRIN 81MG ENTERIC TABLET PO SCH (08:39)
[2022-06-21] MEDS: CLOPIDOGREL 75 MG TAB PO SCH (08:39)
[2022-06-21] MEDS: SERTRALINE 100 MG TAB PO SCH (08:39)
[2022-06-21] MEDS: THIAMINE 100 MG TAB PO SCH (08:40)
[2022-06-21] MEDS: DIVALPROEX 250MG TAB PO SCH (08:40)
[2022-06-21] MEDS: LEVEMIR (INSULIN DETEMIR) 1 UNITS/0.01ML SC SCH (09:00)
[2022-06-21 10:25] LABS: HEMATOCRIT 42.9 % (42.0-52.0); HEMOGLOBIN 14.2 g/dl (13.5-17.5); MEAN CORPUSCULAR HEMOGLOBIN 30.4 pg (27.0-33.0); MEAN CORPUSCULAR HGB CONC 33.1 g/dl (32.0-36.5); MEAN CORPUSCULAR VOLUME 91.9 fl (80.0-96.0); PLATELET COUNT, AUTOMATED 228 10^3/uL (150-450); RED BLOOD COUNT 4.67 10^6/uL (4.30-6.10); WHITE BLOOD COUNT 9.8 10^3/uL (4.0-10.0)
[2022-06-21 11:05] LABS: ALBUMIN 3.2 G/DL (3.2-5.2); ALKALINE PHOSPHATASE 60 U/L (46-116); ALT/SGPT 14 U/L (7.0-40); AST/SGOT 16 U/L (<34); BILIRUBIN,TOTAL 0.3 MG/DL (0.3-1.2); BLOOD UREA NITROGEN 14 MG/DL (9-23); CARBON DIOXIDE LEVEL 30 MMOL/L (20-31); CHLORIDE LEVEL 101 MMOL/L (98-107); CREATININE FOR GFR 0.86 MG/DL (0.70-1.30); GLOMERULAR FILTRATION RATE > 60.0 (>56); GLUCOSE, FASTING 244 MG/DL (60-100); POTASSIUM SERUM 4.6 MMOL/L (3.5-5.1); SODIUM LEVEL 138 MMOL/L (136-145); TOTAL PROTEIN 6.4 G/DL (5.7-8.2)
== END 2022-06-21 13:56 | disposition home or self-care (01) | DRG 861 ==
LOC: M ED 19:29 → EDBD 19:29 → M ED INP 19:30 → ENRESERV 05-29 02:02 → M MSPAV 05-29 02:23 → OBSVTOIN 05-29 11:35 → M MSPAV 06-16 23:26
PROVIDERS: ADMIT Internal Medicine; ATTEND Internal Medicine
DX: R41.1 Anterograde amnesia (principal); G93.40 Encephalopathy, unspecified; E11.65 Type 2 diabetes mellitus with hyperglycemia; G40.909 Epilepsy, unspecified, not intractable, without status epilepticus; F32.A Depression, unspecified; I10 Essential (primary) hypertension; I25.10 Atherosclerotic heart disease of native coronary artery without angina pectoris; J44.9 Chronic obstructive pulmonary disease, unspecified; K21.9 Gastro-esophageal reflux disease without esophagitis; R41.2 Retrograde amnesia; Z95.2 Presence of prosthetic heart valve; Z79.4 Long term (current) use of insulin; F12.90 Cannabis use, unspecified, uncomplicated; F10.10 Alcohol abuse, uncomplicated; Z88.0 Allergy status to penicillin; Z91.030 Bee allergy status; Z88.8 Allergy status to other drugs, medicaments and biological substances; Z79.899 Other long term (current) drug therapy; Z79.82 Long term (current) use of aspirin; F17.210 Nicotine dependence, cigarettes, uncomplicated; I25.2 Old myocardial infarction; Z91.14 Patient's other noncompliance with medication regimen; G47.00 Insomnia, unspecified; R41.82 Altered mental status, unspecified

== ENCOUNTER 2022-07-04 21:45 | Emergency (ER) | payer OTHER ==
[~2022-07-04] VITALS: Ht 167.6 cm; Wt 76.7 kg
[~2022-07-04 21:45] MED LIST changes: +ALCOPAD25 TOP; +ASPI81TAEC PO; +ATOR1TAB21 PO; +BLOOKIT21 XX; +GLUC1TES2 XX; +INSUHUMDS SC; +LANC30MI XX; +LEVE1INJ5 SC; +PANT40TA29 PO; +PEN1MIS22 SC; +SELF1KIT MC; +VITA50TA47 PO
[2022-07-05 06:28] VITALS: BP 136/62
== END 2022-07-05 06:37 | disposition home or self-care (01) ==
LOC: M ED 21:45
DX: S43.402A Unspecified sprain of left shoulder joint, initial encounter (principal); W10.8XXA Fall (on) (from) other stairs and steps, initial encounter; E11.9 Type 2 diabetes mellitus without complications; F31.9 Bipolar disorder, unspecified; J45.909 Unspecified asthma, uncomplicated; F17.200 Nicotine dependence, unspecified, uncomplicated; Z88.0 Allergy status to penicillin; Z88.5 Allergy status to narcotic agent; Z91.030 Bee allergy status; Z86.73 Personal history of transient ischemic attack (TIA), and cerebral infarction without residual deficits; Z79.51 Long term (current) use of inhaled steroids; Z79.4 Long term (current) use of insulin; Z79.899 Other long term (current) drug therapy; Z79.82 Long term (current) use of aspirin

== ENCOUNTER → 2023-06-29 | Outpatient (REF) | payer OTHER ==
[~2023-06-29] MED LIST changes: +INSU100I6 SC; -LEVE1INJ5 SC
[2023-06-29 17:36] LABS: BASO # 0.1 10^3/uL (0.0-0.2); BASO % 1.1 % (0.0-1.0); EOS # 0.2 10^3/uL (0.0-0.5); EOS % 1.7 % (0.0-3.0); HEMOGLOBIN 16.1 g/dl (13.5-17.5); LYMPH # 1.8 10^3/uL (1.5-5.0); LYMPH % 20.7 % (24.0-44.0); MEAN CORPUSCULAR HEMOGLOBIN 30.6 pg (27.0-33.0); MEAN CORPUSCULAR HGB CONC 32.9 g/dl (32.0-36.5); MONO # 0.5 10^3/uL (0.0-0.8); MONO % 5.6 % (2.0-8.0); NEUTROPHILS # 6.3 10^3/uL (1.5-8.5); NEUTROPHILS % 70.2 % (36.0-66.0); PLATELET COUNT, AUTOMATED 247 10^3/uL (150-450); RED BLOOD COUNT 5.27 10^6/uL (4.30-6.10); WHITE BLOOD COUNT 8.9 10^3/uL (4.0-10.0)
[2023-06-29 18:08] LABS: THYROID STIMULATING HORMONE 0.161 uIU/ML (0.55-4.78)
[2023-06-29 18:09] LABS: TOTAL 25(OH) VITAMIN D 13.2 NG/ML (20.0-100.0)
[2023-06-29 18:45] LABS: HEMOGLOBIN A1c > 14.0 % (4.0-6.0)
[2023-06-29 19:01] LABS: ALBUMIN 3.6 G/DL (3.2-5.2); ALKALINE PHOSPHATASE 221 U/L (46-116); ALT/SGPT 15 U/L (7.0-40); AST/SGOT < 8 U/L (<34); BILIRUBIN,TOTAL 0.2 MG/DL (0.3-1.2); BLOOD UREA NITROGEN < 5 MG/DL (9-23); CALCIUM LEVEL 8.6 MG/DL (8.5-10.1); CARBON DIOXIDE LEVEL 29 MMOL/L (20-31); CHLORIDE LEVEL 97 MMOL/L (98-107); CHOLESTEROL LEVEL 177 MG/DL (<200); CHOLESTEROL RISK RATIO 4.41 (<5); GLOMERULAR FILTRATION RATE > 60.0 (>56); GLUCOSE, FASTING 799 MG/DL (60-100); HDL CHOLESTEROL 40.1 MG/DL (>40); LDL CHOLESTEROL 82.7 MG/DL (<100); NON-HDL-C 136.9 MG/DL; POTASSIUM SERUM 4.4 MMOL/L (3.5-5.1); SODIUM LEVEL 131 MMOL/L (136-145); TOTAL PROTEIN 7.5 G/DL (5.7-8.2); TRIGLYCERIDES LEVEL 271 MG/DL (<150)
== END ==
LOC: M LAB REF 16:55
PROVIDERS: ATTEND Nurse Practitioner Family
DX: Z11.9 Encounter for screening for infectious and parasitic diseases, unspecified (principal); E55.9 Vitamin D deficiency, unspecified; R53.83 Other fatigue; E66.3 Overweight

== ENCOUNTER → 2023-08-28 | Outpatient (REF) | payer OTHER, MEDICAID ==
[2023-08-28 14:26] LABS: CREATININE, URINE 42.9 MG/DL; MALB URINE SIEMENS < 3.0 MG/L; MAU/CREAT RATIO 6.9 MCG/MG (0.0-30.0)
[2023-08-28 14:27] LABS: HEPATITIS B SURFACE ANTIBODY NEGATIVE (POSITIVE)
[2023-08-28 15:01] LABS: HEPATITIS B CORE ANTIBODY IGM NEGATIVE (NEGATIVE)
== END ==
LOC: M LAB REF 12:17
PROVIDERS: ATTEND Nurse Practitioner Family
DX: E11.65 Type 2 diabetes mellitus with hyperglycemia (principal); R74.8 Abnormal levels of other serum enzymes

== ENCOUNTER 2023-11-09 14:22 | Inpatient (IN) | payer MEDICAID, OTHER ==
[~2023-11-09] VITALS: Ht 165.1 cm; Wt 61.3 kg
[2023-11-09] MEDS ORDERED: ISOVUE-370 76% 100ML VIAL As Ordered ONE (14:36)
[2023-11-09] MEDS ORDERED: LORazepam 2 MG/ML 1ML VIAL As Ordered ONE (14:50)
[2023-11-09 14:52] LABS: BASO # 0.1 10^3/uL (0.0-0.2); BASO % 0.6 % (0.0-1.0); EOS # 0.1 10^3/uL (0.0-0.5); EOS % 0.9 % (0.0-3.0); HEMATOCRIT 47.2 % (42.0-52.0); HEMOGLOBIN 16.3 g/dl (13.5-17.5); LYMPH # 2.4 10^3/uL (1.5-5.0); LYMPH % 21.4 % (24.0-44.0); MEAN CORPUSCULAR HEMOGLOBIN 31.3 pg (27.0-33.0); MEAN CORPUSCULAR HGB CONC 34.5 g/dl (32.0-36.5); MEAN CORPUSCULAR VOLUME 90.8 fl (80.0-96.0); MONO # 0.6 10^3/uL (0.0-0.8); MONO % 5.2 % (2.0-8.0); NEUTROPHILS # 8.1 10^3/uL (1.5-8.5); NEUTROPHILS % 71.6 % (36.0-66.0); PLATELET COUNT, AUTOMATED 290 10^3/uL (150-450); WHITE BLOOD COUNT 11.2 10^3/uL (4.0-10.0)
[2023-11-09 15:15] LABS: BLOOD UREA NITROGEN 13 MG/DL (9-23); CALCIUM LEVEL 9.6 MG/DL (8.5-10.1); CARBON DIOXIDE LEVEL 28 MMOL/L (20-31); CHLORIDE LEVEL 105 MMOL/L (98-107); CREATININE FOR GFR 0.59 MG/DL (0.70-1.30); GLOMERULAR FILTRATION RATE > 60.0 (>56); GLUCOSE, FASTING 326 MG/DL (60-100); POTASSIUM SERUM 4.2 MMOL/L (3.5-5.1); SODIUM LEVEL 139 MMOL/L (136-145)
[2023-11-09 15:23] LABS: INR 0.97; PARTIAL THROMBOPLASTIN TIME 26.2 SECONDS (24.8-34.2); PROTHROMBIN TIME 12.6 SECONDS (12.5-14.5)
[2023-11-09] MEDS: LORazepam 2 MG/ML 1ML VIAL IV STA ×2 (15:33→18:37)
[2023-11-09 17:16] LABS: VALPROIC ACID (DEPAKOTE) < 3.0 UG/ML (50.0-100.0)
[2023-11-09] MEDS: VALPROATE SOD INJ 1,000 MG in D5W 50 ML IV ONE (17:39)
[2023-11-09] MEDS ORDERED: METF-839 PO (21:36)
[2023-11-09] MEDS ORDERED: MUPI2OI EXT (21:36)
[2023-11-09] MEDS ORDERED: JARD1TAB PO (21:36)
[2023-11-09] MEDS ORDERED: ACET-897 PO (21:36)
[2023-11-09] MEDS ORDERED: ASPI-615 PO (21:41)
[2023-11-09] MEDS ORDERED: HOME MED LIST COMPLETE! XX SCH (21:45)
[2023-11-10] VITALS (7 sets, daily range): BP systolic 113–128; BP diastolic 64–84; TEMP 97.3–98.1; O2SAT 95–99
[2023-11-10] MEDS: NS 1,000 ML IV SCH (02:01)
[2023-11-10] MEDS: INSULIN LISPRO (NovoLOG) PER UNIT SC SCH ×2 (06:00→18:00)
[2023-11-10] MEDS ORDERED: GLUCAGON INJ 1MG VIAL SC PRN (06:20)
[2023-11-10] MEDS ORDERED: GLUCOSE 4 GM CHEW PO PRN (06:20)
[2023-11-10] MEDS ORDERED: DEXTROSE 50% 50ML SYRINGE IV PRN (06:20)
[2023-11-10 07:19] LABS: HEMATOCRIT 45.4 % (42.0-52.0); HEMOGLOBIN 15.8 g/dl (13.5-17.5); MEAN CORPUSCULAR HEMOGLOBIN 31.5 pg (27.0-33.0); MEAN CORPUSCULAR HGB CONC 34.8 g/dl (32.0-36.5); MEAN CORPUSCULAR VOLUME 90.4 fl (80.0-96.0); PLATELET COUNT, AUTOMATED 270 10^3/uL (150-450); RED BLOOD COUNT 5.02 10^6/uL (4.30-6.10); WHITE BLOOD COUNT 11.8 10^3/uL (4.0-10.0)
[2023-11-10 07:49] LABS: ALKALINE PHOSPHATASE 114 U/L (46-116); ALT/SGPT 16 U/L (7.0-40); AST/SGOT 13 U/L (<34); BILIRUBIN,TOTAL 0.7 MG/DL (0.3-1.2); BLOOD UREA NITROGEN 17 MG/DL (9-23); CARBON DIOXIDE LEVEL 27 MMOL/L (20-31); CHLORIDE LEVEL 105 MMOL/L (98-107); CREATININE FOR GFR 0.58 MG/DL (0.70-1.30); GLOMERULAR FILTRATION RATE > 60.0 (>56); GLUCOSE, FASTING 260 MG/DL (60-100); SODIUM LEVEL 140 MMOL/L (136-145); TOTAL PROTEIN 6.1 G/DL (5.7-8.2)
[2023-11-10] MEDS: HEPARIN SOD (PORCINE) 5000UNITS/ML 1ML VIAL/SYRINGE SC SCH (09:00)
[2023-11-10] MEDS: PANTOPRAZOLE 40MG VIAL IV SCH (09:00)
[2023-11-10] MEDS: ASPIRIN 81MG ENTERIC TABLET PO SCH (09:00)
[2023-11-10] MEDS: ATORVASTATIN 20 MG TAB PO SCH (09:00)
[2023-11-10] MEDS: LEVEMIR (INSULIN DETEMIR) 1 UNITS/0.01ML SC SCH (10:09)
[2023-11-10] MEDS: DIVALPROEX 500 MG TAB PO SCH (10:10)
[2023-11-10] MEDS: VALPROATE SOD INJ 500 MG in D5W MINI-BAG PLUS 50 ML IV SCH (15:05)
[2023-11-10 15:14] LABS: HEMOGLOBIN A1c > 14.0 % (4.0-6.0)
[2023-11-11 03:22] VITALS: BP 126/66; TEMP 97.8; O2SAT 95
[2023-11-11 07:10] LABS: ALBUMIN 2.8 G/DL (3.2-5.2); ALKALINE PHOSPHATASE 102 U/L (46-116); ALT/SGPT 14 U/L (7.0-40); AST/SGOT < 8 U/L (<34); BILIRUBIN,TOTAL 0.4 MG/DL (0.3-1.2); BLOOD UREA NITROGEN 16 MG/DL (9-23); CALCIUM LEVEL 8.9 MG/DL (8.5-10.1); CARBON DIOXIDE LEVEL 23 MMOL/L (20-31); CHLORIDE LEVEL 112 MMOL/L (98-107); CREATININE FOR GFR 0.53 MG/DL (0.70-1.30); GLOMERULAR FILTRATION RATE > 60.0 (>56); GLUCOSE, FASTING 70 MG/DL (60-100); POTASSIUM SERUM 3.5 MMOL/L (3.5-5.1); SODIUM LEVEL 146 MMOL/L (136-145); TOTAL PROTEIN 5.8 G/DL (5.7-8.2)
[2023-11-11] MEDS: metFORMIN (GLUCOPHAGE) 500MG TAB PO SCH (08:00)
[2023-11-11 08:36] VITALS: BP 159/92; TEMP 97.5; O2SAT 95
[2023-11-11 08:39] LABS: HEMATOCRIT 46.9 % (42.0-52.0); HEMOGLOBIN 15.8 g/dl (13.5-17.5); MEAN CORPUSCULAR HEMOGLOBIN 30.7 pg (27.0-33.0); MEAN CORPUSCULAR HGB CONC 33.7 g/dl (32.0-36.5); MEAN CORPUSCULAR VOLUME 91.2 fl (80.0-96.0); PLATELET COUNT, AUTOMATED 277 10^3/uL (150-450); RED BLOOD COUNT 5.14 10^6/uL (4.30-6.10); WHITE BLOOD COUNT 9.8 10^3/uL (4.0-10.0)
[2023-11-11] MEDS: VALPROATE SOD INJ 500 MG in D5W MINI-BAG PLUS 50 ML IV SCH (10:20)
[2023-11-11 12:37] VITALS: BP 142/82; TEMP 97.6; O2SAT 96
[2023-11-11] MEDS ORDERED: VALP1CAP2 PO (12:40)
== END 2023-11-11 13:30 | disposition home or self-care (01) | DRG 53 ==
LOC: EDBD 14:22 → M ED 14:22 → M ED INP 11-10 00:47 → M PCU 11-10 02:07
PROVIDERS: ADMIT Internal Medicine; ATTEND Internal Medicine
DX: G40.401 Other generalized epilepsy and epileptic syndromes, not intractable, with status epilepticus (principal); G93.40 Encephalopathy, unspecified; I50.32 Chronic diastolic (congestive) heart failure; I11.0 Hypertensive heart disease with heart failure; J44.9 Chronic obstructive pulmonary disease, unspecified; K21.9 Gastro-esophageal reflux disease without esophagitis; E11.9 Type 2 diabetes mellitus without complications; Z86.73 Personal history of transient ischemic attack (TIA), and cerebral infarction without residual deficits; F41.9 Anxiety disorder, unspecified; F32.A Depression, unspecified; Z95.2 Presence of prosthetic heart valve; F17.200 Nicotine dependence, unspecified, uncomplicated; F12.90 Cannabis use, unspecified, uncomplicated; I25.2 Old myocardial infarction; Z79.82 Long term (current) use of aspirin; Z79.899 Other long term (current) drug therapy; Z88.0 Allergy status to penicillin; Z91.030 Bee allergy status; Z88.8 Allergy status to other drugs, medicaments and biological substances; Z91.148 Patient's other noncompliance with medication regimen for other reason; Z79.4 Long term (current) use of insulin

== ENCOUNTER 2023-11-14 19:58 | Emergency (ER) | payer OTHER ==
[~2023-11-14] VITALS: Ht 157.5 cm; Wt 63.6 kg
[~2023-11-14 19:58] MED LIST changes: +ACET-897 PO; +ASPI-615 PO; +JARD1TAB PO; +MUPI2OI EXT; +VALP1CAP2 PO
[2023-11-14 20:18] VITALS: BP 122/84; TEMP 98.9; O2SAT 98
[2023-11-14 20:43] LABS: HEMATOCRIT 46.8 % (42.0-52.0); HEMOGLOBIN 16.2 g/dl (13.5-17.5); MEAN CORPUSCULAR HEMOGLOBIN 31.5 pg (27.0-33.0); MEAN CORPUSCULAR HGB CONC 34.6 g/dl (32.0-36.5); MEAN CORPUSCULAR VOLUME 90.9 fl (80.0-96.0); PLATELET COUNT, AUTOMATED 302 10^3/uL (150-450); RED BLOOD COUNT 5.15 10^6/uL (4.30-6.10); WHITE BLOOD COUNT 13.1 10^3/uL (4.0-10.0)
[2023-11-14] MEDS ORDERED: VALP1CAP2 PO (21:03)
[2023-11-14] MEDS ORDERED: HOME MED LIST COMPLETE! XX SCH (21:05)
[2023-11-14 21:09] LABS: AMPHETAMINES LEVEL URINE NEGATIVE (NEGATIVE); BARBITURATES URINE NEGATIVE (NEGATIVE); BENZODIAZEPINES URINE NEGATIVE (NEGATIVE); COCAINE METABOLITE URINE NEGATIVE (NEGATIVE); METHADONE URINE NEGATIVE (NEGATIVE); OPIATES URINE NEGATIVE (NEGATIVE); PHENCYCLIDINE URINE NEGATIVE (NEGATIVE)
[2023-11-14 21:10] LABS: CANNABINOIDS URINE NEGATIVE (NEGATIVE)
[2023-11-14 21:12] LABS: ETHYL ALCOHOL (ETHANOL) 0.007 % (0.000-0.010); SALICYLATE LEVEL < 3.0 MG/DL (<30)
[2023-11-14 21:15] LABS: THYROID STIMULATING HORMONE 0.738 uIU/ML (0.55-4.78)
[2023-11-14 21:19] LABS: ALBUMIN 3.7 G/DL (3.2-5.2); ALKALINE PHOSPHATASE 132 U/L (46-116); ALT/SGPT 20 U/L (7.0-40); AST/SGOT 11 U/L (<34); BILIRUBIN,DIRECT 0.1 MG/DL (<0.4); BILIRUBIN,TOTAL 0.4 MG/DL (0.3-1.2); BLOOD UREA NITROGEN 12 MG/DL (9-23); CALCIUM LEVEL 10.4 MG/DL (8.5-10.1); CARBON DIOXIDE LEVEL 29 MMOL/L (20-31); CHLORIDE LEVEL 105 MMOL/L (98-107); GLOMERULAR FILTRATION RATE > 60.0 (>56); GLUCOSE, FASTING 210 MG/DL (60-100); POTASSIUM SERUM 4.4 MMOL/L (3.5-5.1); SODIUM LEVEL 141 MMOL/L (136-145); TOTAL PROTEIN 7.2 G/DL (5.7-8.2)
[2023-11-14 22:09] LABS: VALPROIC ACID (DEPAKOTE) < 3.0 UG/ML (50.0-100.0)
== END 2023-11-14 22:41 | disposition home or self-care (01) ==
LOC: M ED 19:58
DX: G93.40 Encephalopathy, unspecified (principal); E11.9 Type 2 diabetes mellitus without complications; I10 Essential (primary) hypertension; F31.9 Bipolar disorder, unspecified; I25.2 Old myocardial infarction; E78.5 Hyperlipidemia, unspecified; K21.9 Gastro-esophageal reflux disease without esophagitis; G40.909 Epilepsy, unspecified, not intractable, without status epilepticus; F17.200 Nicotine dependence, unspecified, uncomplicated; Z88.0 Allergy status to penicillin; Z88.5 Allergy status to narcotic agent; Z91.030 Bee allergy status; Z86.79 Personal history of other diseases of the circulatory system; Z79.82 Long term (current) use of aspirin; Z79.02 Long term (current) use of antithrombotics/antiplatelets; Z79.4 Long term (current) use of insulin; Z79.899 Other long term (current) drug therapy

== ENCOUNTER → 2023-12-05 | Outpatient (REF) | payer OTHER ==
[~2023-12-05] MED LIST changes: +FLUO-365 PO; -FLUO20CA22 PO
== END ==
LOC: M LAB REF 14:34
PROVIDERS: ATTEND Nurse Practitioner Family
DX: E66.3 Overweight (principal); G40.909 Epilepsy, unspecified, not intractable, without status epilepticus

== ENCOUNTER → 2024-02-02 | Outpatient (CLI) | payer OTHER ==
[2024-02-02 14:08] LABS: HEMATOCRIT 46.4 % (42.0-52.0); MEAN CORPUSCULAR HEMOGLOBIN 31.1 pg (27.0-33.0); MEAN CORPUSCULAR HGB CONC 32.3 g/dl (32.0-36.5); MEAN CORPUSCULAR VOLUME 96.1 fl (80.0-96.0); PLATELET COUNT, AUTOMATED 270 10^3/uL (150-450); RED BLOOD COUNT 4.83 10^6/uL (4.30-6.10); WHITE BLOOD COUNT 10.1 10^3/uL (4.0-10.0)
[2024-02-02 14:35] LABS: THYROID STIMULATING HORMONE 0.891 uIU/ML (0.55-4.78)
[2024-02-02 14:36] LABS: FOLATE 19.56 NG/ML (>5.4)
[2024-02-02 14:57] LABS: ALBUMIN 3.5 G/DL (3.2-5.2); ALKALINE PHOSPHATASE 90 U/L (46-116); ALT/SGPT 12 U/L (7.0-40); AST/SGOT < 8 U/L (<34); BILIRUBIN,TOTAL 0.3 MG/DL (0.3-1.2); BLOOD UREA NITROGEN 12 MG/DL (9-23); CALCIUM LEVEL 9.2 MG/DL (8.5-10.1); CARBON DIOXIDE LEVEL 26 MMOL/L (20-31); CHLORIDE LEVEL 105 MMOL/L (98-107); CREATININE FOR GFR 0.76 MG/DL (0.70-1.30); GLOMERULAR FILTRATION RATE > 60.0 (>56); GLUCOSE, FASTING 226 MG/DL (60-100); POTASSIUM SERUM 4.4 MMOL/L (3.5-5.1); SODIUM LEVEL 139 MMOL/L (136-145); TOTAL PROTEIN 6.8 G/DL (5.7-8.2); VITAMIN B12 LEVEL 501 PG/ML (211-911)
== END ==
LOC: M WUC 09:48
PROVIDERS: ATTEND Nurse Practitioner
DX: R42 Dizziness and giddiness (principal); G31.84 Mild cognitive impairment of uncertain or unknown etiology; R40.4 Transient alteration of awareness

== ENCOUNTER → 2024-02-02 | Outpatient (CLI) | payer OTHER ==
[2024-02-02 14:34] LABS: PSA SCREENING 1.12 NG/ML (< 4.00)
[2024-02-02 14:38] LABS: THYROID STIMULATING HORMONE 0.888 uIU/ML (0.55-4.78)
[2024-02-06 14:11] LABS: QuantiFERON-TB Gold Plus NEGATIVE (NEGATIVE)
== END ==
LOC: M WUC 09:51
PROVIDERS: ATTEND Nurse Practitioner Family
DX: Z12.5 Encounter for screening for malignant neoplasm of prostate (principal); E66.3 Overweight; Z11.9 Encounter for screening for infectious and parasitic diseases, unspecified; G40.909 Epilepsy, unspecified, not intractable, without status epilepticus

== ENCOUNTER → 2024-02-21 | Outpatient (CLI) | payer OTHER ==
[~2024-02-21] MED LIST changes: +ISOVUE-370 76% 100ML VIAL As Ordered ONE
== END ==
LOC: M RAD 15:48
PROVIDERS: ATTEND Nurse Practitioner
DX: R42 Dizziness and giddiness (principal); G31.84 Mild cognitive impairment of uncertain or unknown etiology
CPT/HCPCS: 70496; 70498; Q9967

== ENCOUNTER → 2024-03-05 | Outpatient (CLI) | payer OTHER ==
[~2024-03-05] MED LIST changes: -ISOVUE-370 76% 100ML VIAL As Ordered ONE
== END ==
LOC: M RAD 09:28
PROVIDERS: ATTEND Nurse Practitioner
DX: G31.84 Mild cognitive impairment of uncertain or unknown etiology (principal)

== ENCOUNTER 2024-03-27 12:38 | Emergency (ER) | payer OTHER ==
[~2024-03-27] VITALS: Ht 167.6 cm; Wt 69.0 kg
[2024-03-27 12:57] VITALS: BP 154/85; TEMP 97.6; O2SAT 96
[2024-03-27 13:30] LABS: HEMATOCRIT 49.3 % (42.0-52.0); HEMOGLOBIN 16.6 g/dl (13.5-17.5); MEAN CORPUSCULAR HEMOGLOBIN 31.7 pg (27.0-33.0); MEAN CORPUSCULAR HGB CONC 33.7 g/dl (32.0-36.5); MEAN CORPUSCULAR VOLUME 94.3 fl (80.0-96.0); PLATELET COUNT, AUTOMATED 270 10^3/uL (150-450); RED BLOOD COUNT 5.23 10^6/uL (4.30-6.10); WHITE BLOOD COUNT 9.8 10^3/uL (4.0-10.0)
[2024-03-27 13:48] LABS: AMPHETAMINES LEVEL URINE NEGATIVE (NEGATIVE); BARBITURATES URINE NEGATIVE (NEGATIVE); BENZODIAZEPINES URINE NEGATIVE (NEGATIVE); COCAINE METABOLITE URINE NEGATIVE (NEGATIVE); METHADONE URINE NEGATIVE (NEGATIVE); OPIATES URINE NEGATIVE (NEGATIVE)
[2024-03-27 13:49] LABS: CANNABINOIDS URINE NEGATIVE (NEGATIVE); PHENCYCLIDINE URINE NEGATIVE (NEGATIVE)
[2024-03-27 14:04] LABS: ETHYL ALCOHOL (ETHANOL) 0.003 % (0.000-0.010)
[2024-03-27 14:05] LABS: SALICYLATE LEVEL < 3.0 MG/DL (<30)
[2024-03-27 14:06] LABS: ALKALINE PHOSPHATASE 101 U/L (46-116); ALT/SGPT 14 U/L (7.0-40); AST/SGOT 13 U/L (<34); BILIRUBIN,DIRECT 0.1 MG/DL (<0.4); BILIRUBIN,TOTAL 0.4 MG/DL (0.3-1.2); BLOOD UREA NITROGEN 12 MG/DL (9-23); CALCIUM LEVEL 9.7 MG/DL (8.5-10.1); CARBON DIOXIDE LEVEL 29 MMOL/L (20-31); CHLORIDE LEVEL 104 MMOL/L (98-107); CREATININE FOR GFR 0.88 MG/DL (0.70-1.30); GLOMERULAR FILTRATION RATE > 60.0 (>56); GLUCOSE, FASTING 117 MG/DL (60-100); POTASSIUM SERUM 4.2 MMOL/L (3.5-5.1); SODIUM LEVEL 138 MMOL/L (136-145); TOTAL PROTEIN 7.5 G/DL (5.7-8.2)
[2024-03-27 14:07] LABS: THYROID STIMULATING HORMONE 0.511 uIU/ML (0.55-4.78)
== END 2024-03-27 15:21 | disposition home or self-care (01) ==
LOC: M ED 12:38
DX: F32.A Depression, unspecified (principal); E11.9 Type 2 diabetes mellitus without complications; I10 Essential (primary) hypertension; J44.9 Chronic obstructive pulmonary disease, unspecified; F41.9 Anxiety disorder, unspecified; I25.2 Old myocardial infarction; F17.200 Nicotine dependence, unspecified, uncomplicated; Z86.79 Personal history of other diseases of the circulatory system; Z88.0 Allergy status to penicillin; Z88.5 Allergy status to narcotic agent; Z91.030 Bee allergy status; Z79.82 Long term (current) use of aspirin; Z79.02 Long term (current) use of antithrombotics/antiplatelets; Z79.4 Long term (current) use of insulin; Z79.899 Other long term (current) drug therapy

== ENCOUNTER 2024-05-04 14:06 | Emergency (ER) | payer OTHER ==
[~2024-05-04] VITALS: Ht 167.6 cm; Wt 73.0 kg
[2024-05-04 14:49] LABS: HEMATOCRIT 50.9 % (42.0-52.0); HEMOGLOBIN 17.2 g/dl (13.5-17.5); MEAN CORPUSCULAR HEMOGLOBIN 31.8 pg (27.0-33.0); MEAN CORPUSCULAR HGB CONC 33.8 g/dl (32.0-36.5); MEAN CORPUSCULAR VOLUME 94.1 fl (80.0-96.0); PLATELET COUNT, AUTOMATED 250 10^3/uL (150-450); RED BLOOD COUNT 5.41 10^6/uL (4.30-6.10)
[2024-05-04 15:21] LABS: AMPHETAMINES LEVEL URINE NEGATIVE (NEGATIVE); BARBITURATES URINE NEGATIVE (NEGATIVE); BENZODIAZEPINES URINE NEGATIVE (NEGATIVE); CANNABINOIDS URINE NEGATIVE (NEGATIVE); COCAINE METABOLITE URINE NEGATIVE (NEGATIVE); METHADONE URINE NEGATIVE (NEGATIVE); OPIATES URINE NEGATIVE (NEGATIVE); PHENCYCLIDINE URINE NEGATIVE (NEGATIVE)
[2024-05-04 15:23] LABS: ETHYL ALCOHOL (ETHANOL) < 0.003 % (0.000-0.010); VALPROIC ACID (DEPAKOTE) 78.9 UG/ML (50.0-100.0)
[2024-05-04 15:25] LABS: ALBUMIN 3.6 G/DL (3.2-5.2); ALKALINE PHOSPHATASE 79 U/L (40-129); ALT/SGPT 16 U/L (7.0-40); AST/SGOT 15 U/L (<34); BILIRUBIN,DIRECT 0.2 MG/DL (<0.4); BILIRUBIN,TOTAL 0.5 MG/DL (0.3-1.2); BLOOD UREA NITROGEN 11 MG/DL (9-23); CALCIUM LEVEL 9.6 MG/DL (8.5-10.1); CARBON DIOXIDE LEVEL 31 MMOL/L (20-31); CHLORIDE LEVEL 103 MMOL/L (98-107); GLOMERULAR FILTRATION RATE > 60.0 (>56); GLUCOSE, FASTING 108 MG/DL (60-100); POTASSIUM SERUM 4.8 MMOL/L (3.5-5.1); SALICYLATE LEVEL < 3.0 MG/DL (<30); SODIUM LEVEL 138 MMOL/L (136-145); TOTAL PROTEIN 7.7 G/DL (5.7-8.2)
[2024-05-04 15:27] LABS: THYROID STIMULATING HORMONE 1.573 uIU/ML (0.55-4.78)
[2024-05-04 18:44] VITALS: BP 150/96; TEMP 97.4; O2SAT 99
== END 2024-05-04 19:10 | disposition home or self-care (01) ==
LOC: M ED 14:06
DX: Z13.30 Encounter for screening examination for mental health and behavioral disorders, unspecified (principal); F17.200 Nicotine dependence, unspecified, uncomplicated; I25.2 Old myocardial infarction; I10 Essential (primary) hypertension; E11.9 Type 2 diabetes mellitus without complications; G40.909 Epilepsy, unspecified, not intractable, without status epilepticus; F32.A Depression, unspecified; J44.9 Chronic obstructive pulmonary disease, unspecified; F41.9 Anxiety disorder, unspecified; Z86.79 Personal history of other diseases of the circulatory system; Z88.0 Allergy status to penicillin; Z91.030 Bee allergy status; Z88.5 Allergy status to narcotic agent; Z79.82 Long term (current) use of aspirin; Z79.02 Long term (current) use of antithrombotics/antiplatelets; Z79.4 Long term (current) use of insulin; Z79.899 Other long term (current) drug therapy

== ENCOUNTER 2024-05-28 00:02 | Emergency (ER) | payer OTHER ==
[~2024-05-28] VITALS: Ht 167.6 cm; Wt 113.0 kg
[~2024-05-28 00:02] MED LIST changes: -ADV250INH INH; +ADVA1AER9 INH
[2024-05-28 00:10] VITALS: BP 142/76; TEMP 97.2; O2SAT 98
[2024-05-28 01:03] LABS: HEMATOCRIT 45.8 % (42.0-52.0); HEMOGLOBIN 15.4 g/dl (13.5-17.5); MEAN CORPUSCULAR HEMOGLOBIN 31.4 pg (27.0-33.0); MEAN CORPUSCULAR HGB CONC 33.6 g/dl (32.0-36.5); MEAN CORPUSCULAR VOLUME 93.3 fl (80.0-96.0); PLATELET COUNT, AUTOMATED 230 10^3/uL (150-450); RED BLOOD COUNT 4.91 10^6/uL (4.30-6.10); WHITE BLOOD COUNT 10.8 10^3/uL (4.0-10.0)
[2024-05-28 01:08] LABS: AMPHETAMINES LEVEL URINE NEGATIVE (NEGATIVE); BARBITURATES URINE NEGATIVE (NEGATIVE); BENZODIAZEPINES URINE NEGATIVE (NEGATIVE); CANNABINOIDS URINE NEGATIVE (NEGATIVE); COCAINE METABOLITE URINE NEGATIVE (NEGATIVE); METHADONE URINE NEGATIVE (NEGATIVE); OPIATES URINE NEGATIVE (NEGATIVE); PHENCYCLIDINE URINE NEGATIVE (NEGATIVE)
[2024-05-28 01:10] LABS: ETHYL ALCOHOL (ETHANOL) < 0.003 % (0.000-0.010)
[2024-05-28 01:12] LABS: SALICYLATE LEVEL < 3.0 MG/DL (<30)
[2024-05-28 01:21] LABS: ALBUMIN 3.7 G/DL (3.2-5.2); ALKALINE PHOSPHATASE 87 U/L (40-129); ALT/SGPT 41 U/L (7.0-40); AST/SGOT 37 U/L (<34); BILIRUBIN,DIRECT < 0.1 MG/DL (<0.4); BILIRUBIN,TOTAL 0.2 MG/DL (0.3-1.2); BLOOD UREA NITROGEN 36 MG/DL (9-23); CALCIUM LEVEL 9.6 MG/DL (8.5-10.1); CARBON DIOXIDE LEVEL 27 MMOL/L (20-31); CHLORIDE LEVEL 105 MMOL/L (98-107); CREATININE FOR GFR 1.17 MG/DL (0.70-1.30); GLOMERULAR FILTRATION RATE > 60.0 (>56); GLUCOSE, FASTING 128 MG/DL (60-100); POTASSIUM SERUM 4.1 MMOL/L (3.5-5.1); SODIUM LEVEL 140 MMOL/L (136-145); THYROID STIMULATING HORMONE 1.781 uIU/ML (0.55-4.78); TOTAL PROTEIN 7.2 G/DL (5.7-8.2)
[2024-05-28] MEDS ORDERED: CLOP75TA2 PO (08:58)
[2024-05-28] MEDS ORDERED: LISI20TA33 PO (08:58)
[2024-05-28] MEDS ORDERED: DEPA500T2 PO (08:58)
[2024-05-28] MEDS ORDERED: ARIC1TAB PO (08:58)
[2024-05-28] MEDS ORDERED: JARD1TAB3 PO (08:58)
[2024-05-28] MEDS ORDERED: GLIP-162 PO (08:58)
[2024-05-28] MEDS ORDERED: HOME MED LIST COMPLETE! XX SCH (09:00)
== END 2024-05-28 10:00 | disposition home or self-care (01) ==
LOC: M ED 00:19
DX: F32.A Depression, unspecified (principal); E11.9 Type 2 diabetes mellitus without complications; Z91.030 Bee allergy status; Z88.0 Allergy status to penicillin; Z88.5 Allergy status to narcotic agent; Z79.82 Long term (current) use of aspirin; Z79.02 Long term (current) use of antithrombotics/antiplatelets; Z79.4 Long term (current) use of insulin; Z79.899 Other long term (current) drug therapy